=== PATIENT | male | born 1940 | race Caucasian/White ===

== ENCOUNTER 2020-06-08 13:55 | Emergency (ER) | payer OTHER, SELFPAY ==
[2020-06-08] VITALS (7 sets, daily range): BP systolic 106–152; BP diastolic 68–84; PULSE 50–61; RESP 14–20; TEMP 36.6; O2SAT 89–97; BMI 33.6
--- NOTE | 2020-06-08 15:13 | XRR_ITS ---
PROCEDURE INFORMATION: Exam: XR Chest, 1 View Exam date and time: 06/08/2020 3:22 PM Age: 80 years old Clinical indication: Chest pain; Type not specified TECHNIQUE: Imaging protocol: XR of the chest Views: 1 view. COMPARISON: No relevant prior studies available. FINDINGS: Lungs: Mild fibrosis at the lung bases. No consolidative pulmonary infiltrate noted. Pleural space: No pleural effusion. No pneumothorax. Heart/Mediastinum: No cardiomegaly. Bones/joints: Mild degenerative thoracic spine changes. XR/XR chest 1V portable [id number] IMPRESSION: No acute cardiopulmonary disease demonstrated.
--- NOTE | 2020-06-08 15:13 | ECG_ITS ---
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 Measurements Intervals [place] Rate: 55 P: -21 IL: 210 QRS: -29 QRSD: 90 T: 62 QT: 396 QTc: 380 Interpretive Statements SINUS BRADYCARDIA WITH FIRST DEGREE AV BLOCK MODERATE VOLTAGE CRITERIA FOR LVH, CONSIDER NORMAL VARIANT [MEETS CRITERIA IN ONE OF: R(aVL), S(V1), R(V5), R(V5/V6)+S(V1)] No previous ECG available for comparison Electronically Signed On 06-08-2020 20:21:54 LEVELING MACHINE OPERATOR by Tiffanie Brannon M.D. [id number]
--- NOTE | 2020-06-08 15:32 | W.ED.FALL ---
HPI - Fall General: Chief Complaint: Fall Stated Complaint: CP, FALL Time Seen by Provider: 06/08/20 15:11 History of Present Illness: HPI Narrative: The patient is an 80-year-old male with past medical history of coronary artery disease, hypertension. He was standing at the kitchen sink and began to fall backwards and started walking backwards but could not catch up and fell flat on his back. He does not complain of pain but he said earlier today he had a left-sided chest pain similar to the chest pain he had when he had his stents placed in his heart years ago. He said he had another episode a few days ago but has not seen anyone about this problem. He said over the past week he has been having increased cough and he does have COPD as well. He wears 1 L oxygen at night only. Satting 93% on room air in the ER today. No respiratory distress. Fall from: standing Fall witnessed: no Place fall occurred: home Loss of consciousness: None Prolonged down time: no Symptoms prior to fall: none Severity: mild Associated symptoms-after fall: Denies abdominal pain, chest pain, confusion, difficulty walking, headache(s) or neck pain Review of Systems General: Reports: 10 or more systems reviewed and unremarkable except in HPI and below Const: Denies: fatigue Eyes: Denies: change in vision, blurry vision or eye redness ENMT: Denies: throat pain, swelling of lips/tongue, ear or mastoid pain or nasal congestion Card: Denies: chest pain, palpitations, irregular heart rhythm, edema, dyspnea on exertion or orthopnea Resp: Denies: dyspnea, productive cough or non-productive cough GI: Denies: abdominal pain, diarrhea or GI cramping : Denies: flank pain, urinary frequency or urinary urgency Musc: Denies: neck pain, back pain, extremity pain, joint pain, joint redness, limited range of motion or muscle weakness Skin/Breast: Denies: rash, pruritus, erythema, skin pain or skin tenderness Neuro: Denies: headache(s), numbness in extremities, weakness in extremities, sensory changes, difficulty walking, dizziness, confusion or Slurred speech present Psych: Denies: anxiety or depression Endo: Denies: polyuria All/Imm: Denies: urticaria, throat swelling or tongue swelling Physical Exam Const: COMMON NORMALS: no acute distress, average body habitus, patient oriented x3, no limitations, healthy appearing, alert and well nourished GENERAL APPEARANCE: cooperative, comfortable, well kempt and well developed ORIENTATION/CONSCIOUSNESS: Yes awake, Yes oriented to person, Yes oriented to place and Yes oriented to time HENMT: COMMON NORMALS: normocephalic, external ears normal and Normal external nose present HEAD & SCALP: normal to inspection and normocephalic NOSE: Normal external nose present EXTERNAL EAR: Yes external ears normal MOUTH: Normal oral and palatal mucosa present THROAT: posterior oropharynx normal Eye: COMMON NORMALS: Equal, round and reactive pupils present and EOMs intact bilaterally GENERAL EYE: appearance normal, both eyes and all related structures PUPIL: Yes Equal, round and reactive pupils present Neck/C-Spine: COMMON NORMALS: full ROM, no lymphadenopathy, no meningeal signs and no JVD GENERAL: Yes normal visual inspection Lymph: LYMPHATIC: no lymphadenopathy noted Chest: COMMONS NORMALS: normal inspection of the chest and normal palpation of entire chest wall Resp: COMMON NORMALS: normal respiratory effort, No retractions, No use of accessory muscles, clear to auscultation bilaterally and percussion normal EFFORT & INSPECTION: Yes able to speak in complete sentences AUSCULTATION: clear to auscultation bilaterally PERCUSSION: percussion normal Cardio: COMMON NORMALS: no JVD, regular rate, regular rhythm, S1 normal heart sound present, S2 normal heart sound present and Peripheral pulses 2+ throughout RATE: regular rate RHYTHM: regular rhythm HEART SOUNDS: S1 normal heart sound present and S2 normal heart sound present PERIPHERAL PULSES: Peripheral pulses 2+ throughout GI: COMMON NORMALS: Normal to inspection, nondistended, normoactive bowel sounds present, Soft to palpation, non-tender and no masses INSPECTION: Yes normal to inspection PALPATION: Yes Soft to palpation : COMMON NORMALS: Yes no CVA tenderness BLADDER/KIDNEY EXAM: Yes no CVA tenderness Back/Pelvis: COMMON NORMALS: no CVA tenderness, thoracic and lumbar spine normal to inspection, no thoracic nor lumbar tenderness and thoraco-lumbar ROM normal Extremity: COMMON NORMALS: normal to inspection, full ROM, capillary refill normal, no joint enlargement and no pedal edema GENERAL: Yes normal exam except as noted Neuro: COMMON NORMALS: patient oriented x3, CN's II-XII intact bilaterally, moves all extremities, no focal motor deficits, no sensory deficits noted and gait normal SENSORIUM/ORIENTATION: Yes alert, Yes oriented to person, Yes oriented to place and Yes oriented to time MENINGEAL SIGNS: Yes no meningeal signs Psych: COMMON NORMALS: mental status grossly normal, Normal thought process present, cooperative, normal affect and speech normal APPEARANCE: Yes well kempt ATTITUDE: Yes calm SPEECH: Yes normal speech THOUGHT PROCESS: Normal thought process present Skin: COMMON NORMALS: no rashes or lesions noted GENERAL SKIN EXAM: no rashes or lesions noted Course Vital Signs: Vital signs: Vital Signs Temperature 97.8 F 06/08/20 14:17 Pulse Rate 55 L 06/08/20 15:11 Respiratory Rate 20 H 06/08/20 15:11 Blood Pressure 106/68 06/08/20 15:11 Pulse Oximetry 93 06/08/20 15:11 MDM - Fall MDM Narrative: Medical decision making narrative: The patient has COPD and left-sided chest pain he says similar to when he had his cardiac stenting procedures done years ago. I recommended admission however he declined. I discussed it would be AGAINST MEDICAL ADVICE. He understands and accepts the risks of myocardial infarction and . He signed AMA and left. Recommended calling his call center team leader in [place] to get an appointment CASEY and return to the ER with any worsening symptoms Lab Data: Labs: Lab Results 06/08/20 06/08/20 06/08/20 Range/Units 15:22 15:22 15:22 WBC 12.3 H (4.0-10.0) 10^3/ uL RBC 4.27 (4.1-5.3) 10^6/u L Hgb 13.2 (11.7-16.6) g/dL Hct 41.1 L (42.0-52.0) % MCV 96.3 H (80-94) fL MCH 30.9 (28.0-34.0) pg MCHC 32.1 (30.0-36.0) g/dL RDW 12.8 (12.1-15.1) % Plt Count 354 (130-400) 10^3/c mm MPV 10.0 (7.4-10.4) fL Neut % (Auto) 80.9 % Lymph % (Auto) 10.5 % Stephens % (Auto) 7.5 % Eos % (Auto) 0.2 % Baso % (Auto) 0.2 % Neut # (Auto) 9.98 H (1.8-7.7) 10^3/u L Lymph # (Auto) 1.3 (0.8-4.8) 10^3/u L Stephens # (Auto) 0.9 (0.2-0.9) 10^3/u L Eos # (Auto) 0.0 (0.0-0.8) 10^3/u L Baso # (Auto) 0.0 (0.0-0.1) 10^3/u L Nucleated RBC % (a uto) 0 % Nucleated RBCs # 0.0 /100WBC PT 13.80 (12.1-14.9) SECO NDS INR 1.03 (0.8-1.2) D-Dimer 2.68 H (0-0.59) ug/mIFE U Sodium 134 L (136-145) mmol/L Potassium 4.5 (3.5-5.1) mmol/L Chloride 97 L (98-107) mmol/L Carbon Dioxide 28 (22-29) mmol/L Anion Gap 13.5 (5-19) BUN 29 H (8-23) mg/dL Creatinine 1.3 H (0.7-1.2) mg/dL GFR Calculation Not Reportable Glucose 165 H (65-115) mg/dL Calculated Osmolal ity 288 (285-295) mOsm/k g Calcium 9.9 (8.5-10.5) mg/dL Total Bilirubin 0.4 (0.15-1.2) mg/dL AST 33 (0-40) U/L ALT 40 (0-41) U/L Alkaline Phosphata se 94 (40-130) IU/L Troponin T Baselin e (0-15) ng/L NT-Pro-B Natriuret Pep 443 (0-450) pg/mL Total Protein 7.3 (6.6-8.7) g/dL Albumin 4.1 (3.5-5.2) g/dL Globulin 3.2 (1.3-4.6) g/dL 06/08/20 Range/Units 15:22 WBC (4.0-10.0) 10^3/ uL RBC (4.1-5.3) 10^6/u L Hgb (11.7-16.6) g/dL Hct (42.0-52.0) % MCV (80-94) fL MCH (28.0-34.0) pg MCHC (30.0-36.0) g/dL RDW (12.1-15.1) % Plt Count (130-400) 10^3/c mm MPV (7.4-10.4) fL Neut % (Auto) % Lymph % (Auto) % Stephens % (Auto) % Eos % (Auto) % Baso % (Auto) % Neut # (Auto) (1.8-7.7) 10^3/u L Lymph # (Auto) (0.8-4.8) 10^3/u L Stephens # (Auto) (0.2-0.9) 10^3/u L Eos # (Auto) (0.0-0.8) 10^3/u L Baso # (Auto) (0.0-0.1) 10^3/u L Nucleated RBC % (a uto) % Nucleated RBCs # /100WBC PT (12.1-14.9) SECO NDS INR (0.8-1.2) D-Dimer (0-0.59) ug/mIFE U Sodium (136-145) mmol/L Potassium (3.5-5.1) mmol/L Chloride (98-107) mmol/L Carbon Dioxide (22-29) mmol/L Anion Gap (5-19) BUN (8-23) mg/dL Creatinine (0.7-1.2) mg/dL GFR Calculation Glucose (65-115) mg/dL Calculated Osmolal ity (285-295) mOsm/k g Calcium (8.5-10.5) mg/dL Total Bilirubin (0.15-1.2) mg/dL AST (0-40) U/L ALT (0-41) U/L Alkaline Phosphata se (40-130) IU/L Troponin T Baselin e 25 H (0-15) ng/L NT-Pro-B Natriuret Pep (0-450) pg/mL Total Protein (6.6-8.7) g/dL Albumin (3.5-5.2) g/dL Globulin (1.3-4.6) g/dL Discharge Plan Discharge Patient Disposition: Left Against Medical Advice Condition: Stable Prescriptions: No Action atorvastatin 40 mg tablet 40 mg PO DAILY@1900 RF: 0 azithromycin 250 mg tablet 250 mg PO DAILY@0900 RF: 0 levalbuterol HCl 0.63 mg/3 mL solution for nebulization See Rx Instructions .ROUTE .COMPLEX RF: 0 lisinopril 20 mg tablet 20 mg PO DAILY@0900 RF: 0 prednisone 20 mg tablet 20 mg PO DAILY@0900 RF: 0 clopidogrel 75 mg tablet 75 mg PO DAILY@0900 RF: 0 glipizide 5 mg tablet 5 mg PO DAILY@0900 RF: 0 metoprolol tartrate 25 mg tablet 25 mg PO BID@0900,1900 RF: 0 Tylenol 325 mg Tablet 325 - 350 mg PO QID PRN (Reason: Pain) RF: 0 Aspir-81 81 mg Tablet,Delayed Release (Dr/Ec) 81 mg PO DAILY@0900 RF: 0 Coding Level of Care Code ED Milled Lumber Grader for Cheri Fwd Exam Comprehensive
[2020-06-08 15:41] LABS: Basophils % 0.2 %; Eosinophils % 0.2 %; Hematocrit 41.1 % (42.0-52.0); Hemoglobin 13.2 g/dL (11.7-16.6); Lymphocytes # 1.3 10^3/uL (0.8-4.8); Lymphocytes % 10.5 %; Mean Corpuscular HGB Conc 32.1 g/dL (30.0-36.0); Mean Corpuscular Hemoglobin 30.9 pg (28.0-34.0); Mean Corpuscular Volume 96.3 fL (80-94); Monocytes # 0.9 10^3/uL (0.2-0.9); Monocytes % 7.5 %; Neutrophils # 9.98 10^3/uL (1.8-7.7); Neutrophils % 80.9 %; Nucleated Red Blood Cells % 0 %; Platelet Count 354 10^3/cmm (130-400); Red Blood Count 4.27 10^6/uL (4.1-5.3); Red Cell Distribution Width 12.8 % (12.1-15.1); White Blood Count 12.3 10^3/uL (4.0-10.0)
[2020-06-08] MEDS: aspirin 81 mg Chew Tablet PO (15:41)
[2020-06-08 16:06] LABS: INR 1.03 (0.8-1.2)
[2020-06-08 16:09] LABS: D Dimer 2.68 ug/mIFEU (0-0.59)
--- NOTE | 2020-06-08 16:18 | CTR_ITS ---
PROCEDURE INFORMATION: Exam: CT Angiography Chest With Contrast Exam date and time: 06/08/2020 5:10 PM Age: 80 years old Clinical indication: Shortness of breath; Additional info: RO pe TECHNIQUE: Imaging protocol: Computed tomographic angiography of the chest with intravenous contrast. 3D rendering (Not supervised by radiologist): MIP and/or 3D reconstructed images were created by the technologist. Radiation optimization: All CT scans at this facility use at least one of these dose optimization techniques: automated exposure control; mA and/or kV adjustment per patient size (includes targeted exams where dose is matched to clinical indication); or iterative reconstruction. Contrast material: VISI 320; Contrast volume: 81 ml; Contrast route: INTRAVENOUS (IV); COMPARISON: CR (CHEST, ) 06/08/2020 3:19 PM RADIATION DOSE METRICS: Total DLP (mGy-cm): 621.07 FINDINGS: Pulmonary arteries: Pulmonary arteries are well opacified. Pulmonary arteries are normal in caliber. No filling defects are demonstrated. No evidence of pulmonary embolism. Aorta: Atherosclerosis of the thoracic aorta. 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 No aortic dissection. Lungs: Mild subpleural fibrosis bilaterally. Mild atelectasis at the lung bases. No consolidative pulmonary infiltrate noted. Pleural space: No pleural effusion or pneumothorax noted. Heart: No cardiomegaly. No pericardial effusion. Lymph nodes: No pathologically enlarged lymph nodes are demonstrated. Bones/joints: Mild degenerative thoracic spine changes. No acute osseous abnormality. Soft tissues: The soft tissues appear unremarkable. CT/CT angio chest PE protcl [id number] IMPRESSION: 1. No evidence of pulmonary embolism. 2. Atherosclerosis of the thoracic aorta. 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 No aortic dissection. 3. Mild subpleural fibrosis bilaterally. Mild atelectasis at the lung bases. No consolidative pulmonary infiltrate noted. Radiation Dose CTDIVOL = (mGy): DLP = 621.07 (mGy-cm)
[2020-06-08 16:19] LABS: Troponin(5th) Baseline 25 ng/L (0-15)
[2020-06-08 16:39] LABS: Alanine Aminotransferase 40 U/L (0-41); Albumin Level 4.1 g/dL (3.5-5.2); Alkaline Phosphatase 94 IU/L (40-130); Anion Gap 13.5 (5-19); Aspartate Amino Transferase 33 U/L (0-40); Blood Urea Nitrogen 29 mg/dL (8-23); Calcium 9.9 mg/dL (8.5-10.5); Carbon Dioxide 28 mmol/L (22-29); Chloride 97 mmol/L (98-107); Globulin 3.2 g/dL (1.3-4.6); Glucose 165 mg/dL (65-115); NT Pro B Type Natriuretic Pept 443 pg/mL (0-450); Osmolality Calculated 288 mOsm/kg (285-295); Potassium 4.5 mmol/L (3.5-5.1); Sodium 134 mmol/L (136-145); Total Bilirubin 0.4 mg/dL (0.15-1.2); Total Protein 7.3 g/dL (6.6-8.7)
--- NOTE | 2020-06-08 17:13 | ECG_ITS ---
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 Measurements Intervals [place] Rate: 59 P: -2 OR: 178 QRS: -27 QRSD: 94 T: 48 QT: 409 QTc: 408 Interpretive Statements SINUS BRADYCARDIA BORDERLINE LEFT AXIS DEVIATION [QRS AXIS < -20] Compared to ECG 06/08/2020 14:15:33 First degree AV block no longer present Electronically Signed On 06-08-2020 20:36:40 DAYTIME BABYSITTER by Tiffanie Brannon M.D. [id number]
[2020-06-08] MEDS: iodixanol 320 mg/mL 100mL Btl IV (17:15)
== END 2020-06-08 18:40 | disposition left against medical advice (07) ==
PROVIDERS: Emergency Provider Family Medicine
DX: R07.9 Chest pain, unspecified (principal); Z53.21 Procedure and treatment not carried out due to patient leaving prior to being seen by health care provider; Z79.84 Long term (current) use of oral hypoglycemic drugs; Z79.02 Long term (current) use of antithrombotics/antiplatelets; Z79.82 Long term (current) use of aspirin
CPT/HCPCS: 12345; 71045; 71275; 80053; 83880; 84484; 85025; 85378; 85610; 93005; 99282; 99284; Q9967

== ENCOUNTER 2020-06-09 13:30 | Inpatient (IN) | payer MEDICARE, SELFPAY ==
[2020-06-09 13:36] VITALS: BP 105/55; PULSE 56; RESP 16; TEMP 36.4; O2SAT 96; BMI 33.6
--- NOTE | 2020-06-09 13:48 | XRR_ITS ---
PROCEDURE INFORMATION: Exam: XR Chest, 1 View Exam date and time: 06/09/2020 1:52 PM Age: 80 years old Clinical indication: Chest pain; Type not specified TECHNIQUE: Imaging protocol: XR of the chest Views: 1 view. COMPARISON: CR (CHEST, ) 06/08/2020 3:19 PM FINDINGS: Lungs: There is right lower lobe atelectasis seen. No consolidation. Pleural space: Unremarkable. No pleural effusion. No pneumothorax. Heart/Mediastinum: Unremarkable. No cardiomegaly. Bones/joints: Unremarkable. XR/XR chest 1V portable [id number] IMPRESSION: 1. Right lower lobe atelectasis 2. No acute findings.
--- NOTE | 2020-06-09 13:48 | CT_ITS ---
WS: [id number] CT HEAD NONCONTRAST HISTORY: altered mental status TECHNIQUE: Contiguous axial imaging performed through the brain in 2.5 mm imaging. Bone and soft tiss ue windows. Sagittal and coronal reformats reviewed. All CT scans at [facility] use at ast one of these dose optimization techniques: automated exposure control; mA and/or kV adjustment pe r patient size (includes targeted exams where dose is matched to clinical indication); or iterative r econstruction. DLP: 969.08 mGy.cm COMPARISON: None available. No acute intracranial hemorrhage, midline shift or mass effect. Mild atrophy and mild chronic microvascular ischemic disease. There are a few small lacunar infarcts in the LEFT basal ganglia. No acute infarct or sulcal effacement. Mild volume loss in the cerebellum. Ventricles: Normal size with no hydrocephalus. Paranasal sinuses: As visualized are clear. Mastoid air cells: Well pneumatized. Calvarium and scalp: Skull is intact with no soft tissue edema or swelling. Moderate to severe atherosclerotic plaque within the intracranial carotid arteries. CT/CT head wo con* [id number] IMPRESSION: 1. No acute intracranial hemorrhage or edema. 2. Mild cerebral atrophy and chronic ischemic disease with small LEFT basal ga nglia lacunar infarcts.
--- NOTE | 2020-06-09 13:51 | ECG_ITS ---
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 Measurements Intervals [place] Rate: 54 P: 71 [place]: 202 QRS: -23 QRSD: 72 T: 67 QT: 393 QTc: 375 Interpretive Statements SINUS BRADYCARDIA INFERIOR MYOCARDIAL INFARCTION , PROBABLY OLD [40+ ms Q WAVE AND/OR ST/T ABNORMALITY IN II/aVF] Compared to ECG 06/08/2020 17:47:02 Myocardial infarct finding now present Prominent U wave Electronically Signed On 06-09-2020 18:47:16 TILE AND MARBLE SETTER by Tiffanie Brannon M.D. [id number]
[2020-06-09] MEDS: aspirin 81 mg Chew Tablet PO ×3 (14:17→14:18)
--- NOTE | 2020-06-09 14:26 | ED_ITS ---
HPI - General Adult General: Chief complaint: General Medical Stated complaint: weakness/dizziness Time Seen by Provider: 06/09/20 13:38 History of Present Illness: HPI narrative: The patient is an 80-year-old male with past medical history of coronary artery disease, hypertension, and COPD. He wears 1 L of oxygen at night only. He comes to the ER today for a fall. He says he has been getting off balance and falls backward. Denies any injuries. He was seen here yesterday and left AGAINST MEDICAL ADVICE for a nearly identical fall. He has been having increased falls over the past 1 to 2 weeks and says he has been having left-sided chest pain intermittently. He also gets short of breath. EMS reports that he had left-sided chest pain and left arm tingling during the ride though he now denies this. Severity: moderate Associated symptoms: Deny chest pain, confusion, dyspnea, headache(s), rash or palpitations Review of Systems General: Reports: 10 or more systems reviewed and unremarkable except in HPI and below Const: Denies: fatigue Eyes: Denies: change in vision, blurry vision or eye redness ENMT: Denies: throat pain, swelling of lips/tongue, ear or mastoid pain or nasal congestion Card: Denies: chest pain, palpitations, irregular heart rhythm, edema, dyspnea on exertion or orthopnea Resp: Denies: dyspnea, productive cough or non-productive cough GI: Denies: abdominal pain, diarrhea or GI cramping : Denies: flank pain, urinary frequency or urinary urgency Musc: Denies: neck pain, back pain, extremity pain, joint pain, joint redness, limited range of motion or muscle weakness Skin/Breast: Denies: rash, pruritus, erythema, skin pain or skin tenderness Neuro: Denies: headache(s), numbness in extremities, weakness in extremities, sensory changes, difficulty walking, dizziness, confusion or Slurred speech present Psych: Denies: anxiety or depression Endo: Denies: polyuria All/Imm: Denies: urticaria, throat swelling or tongue swelling PFSH ED PFSH: Medical History COPD (chronic obstructive pulmonary disease) History of prediabetes Hypertension Surgical History H/O abdominal aortic aneurysm repair Family History Other Family history non-contributory Social History Smoking and tobacco status: former smoker Alcohol intake: never Substance/Drug Use: never Household members: family Housing: House Physical Exam Const: COMMON NORMALS: no acute distress, average body habitus, patient tobi ented x3, no limitations, healthy appearing, alert and well nourished GENERAL APPEARANCE: cooperative, comfortable, well kempt and well developed ORIENTATION/CONSCIOUSNESS: Yes awake, Yes oriented to person, Yes oriented to place and Yes oriented to time HENMT: COMMON NORMALS: normocephalic, external ears normal and Normal external nose present HEAD & SCALP: normal to inspection and normocephalic NOSE: Normal external nose present EXTERNAL EAR: Yes external ears normal MOUTH: Normal oral and palatal mucosa present THROAT: posterior oropharynx normal Eye: COMMON NORMALS: Equal, round and reactive pupils present and EOMs intact bilaterally GENERAL EYE: appearance normal, both eyes and all related structures PUPIL: Yes Equal, round and reactive pupils present Neck/C-Spine: COMMON NORMALS: full ROM, no lymphadenopathy, no meningeal signs and no JVD GENERAL: Yes normal visual inspection Lymph: LYMPHATIC: no lymphadenopathy noted Chest: COMMONS NORMALS: normal inspection of the chest and normal palpation of entire chest wall Resp: COMMON NORMALS: normal respiratory effort, No retractions, No use of accessory muscles, clear to auscultation bilaterally and percussion normal EFFORT & INSPECTION: Yes able to speak in complete sentences AUSCULTATION: clear to auscultation bilaterally PERCUSSION: percussion normal Cardio: COMMON NORMALS: no JVD, regular rate, regular rhythm, S1 normal heart sound present, S2 normal heart sound present and Peripheral pulses 2+ throughout RATE: regular rate RHYTHM: regular rhythm HEART SOUNDS: S1 normal heart sound present and S2 normal heart sound present PERIPHERAL PULSES: Peripheral pulses 2+ throughout GI: COMMON NORMALS: Normal to inspection, nondistended, normoactive bowel sounds present, Soft to palpation, non-tender and no masses INSPECTION: Yes normal to inspection PALPATION: Yes Soft to palpation : COMMON NORMALS: Yes no CVA tenderness BLADDER/KIDNEY EXAM: Yes no CVA tenderness Back/Pelvis: COMMON NORMALS: no CVA tenderness, thoracic and lumbar spine normal to inspection, no thoracic nor lumbar tenderness and thoraco-lumbar ROM normal Extremity: COMMON NORMALS: normal to inspection, full ROM, capillary refill normal, no joint enlargement and no pedal edema GENERAL: Yes normal exam except as noted Neuro: COMMON NORMALS: patient oriented x3, CN's II-XII intact bilaterally, moves all extremities, no focal motor deficits, no sensory deficits noted and gait normal SENSORIUM/ORIENTATION: Yes alert, Yes oriented to person, Yes oriented to place and Yes oriented to time MENINGEAL SIGNS: Yes no meningeal signs Psych: COMMON NORMALS: mental status grossly normal, Normal thought process present, cooperative, normal affect and speech normal APPEARANCE: Yes well kempt ATTITUDE: Yes calm SPEECH: Yes normal speech THOUGHT PROCESS: Normal thought process present Skin: COMMON NORMALS: no rashes or lesions noted GENERAL SKIN EXAM: no rashes or lesions noted Course Vital Signs: Vital signs: Vital Signs Temperature 97.5 F L 06/09/20 13:36 Pulse Rate 61 06/09/20 21:32 Respiratory Rate 14 06/09/20 21:32 Blood Pressure 108/61 06/09/20 21:32 Pulse Oximetry 95 06/09/20 21:32 MDM - General Adult MDM Narrative: Medical decision making narrative: The patient comes in today after leaving AMA yesterday. He is likely having early dementia but he continues to report chest pain both days. Troponins have been negative but EKG shows he does have some cardiac history and possible T wave changes on the repeat EKG. X-ray also shows a likely consolidation in right lower lung and he was started on antibiotics. Discussed patient's care with Dr. Burgess who accepts his care. Lab Data: Labs: Lab Results 06/09/20 06/09/20 06/09/20 Range/Units 17:19 17:19 17:19 WBC 11.9 H (4.0-10.0) 10^3/ uL RBC 4.17 (4.1-5.3) 10^6/u L Hgb 12.9 (11.7-16.6) g/dL Hct 40.3 L (42.0-52.0) % MCV 96.6 H (80-94) fL MCH 30.9 (28.0-34.0) pg MCHC 32.0 (30.0-36.0) g/dL RDW 13.0 (12.1-15.1) % Plt Count 325 (130-400) 10^3/c mm MPV 9.9 (7.4-10.4) fL Neut % (Auto) 67.2 % Lymph % (Auto) 20.4 % Dunn % (Auto) 10.3 % Eos % (Auto) 0.6 % Baso % (Auto) 0.3 % Neut # (Auto) 8.03 H (1.8-7.7) 10^3/u L Lymph # (Auto) 2.4 (0.8-4.8) 10^3/u L Dunn # (Auto) 1.2 H (0.2-0.9) 10^3/u L Eos # (Auto) 0.1 (0.0-0.8) 10^3/u L Baso # (Auto) 0.0 (0.0-0.1) 10^3/u L Nucleated RBC % (a uto) 0 % Nucleated RBCs # 0.0 /100WBC D-Dimer 2.29 H (0-0.59) ug/mIFE U Sodium 138 (136-145) mmol/L Potassium 4.3 (3.5-5.1) mmol/L Chloride 100 (98-107) mmol/L Carbon Dioxide 27 (22-29) mmol/L Anion Gap 15.3 (5-19) BUN 33 H (8-23) mg/dL Creatinine 1.4 H (0.7-1.2) mg/dL GFR Calculation Not Reportable Glucose 116 H (65-115) mg/dL Calculated Osmolal ity 294 (285-295) mOsm/k g Lactate (0.5-2.2) mmol/L Calcium 9.7 (8.5-10.5) mg/dL Total Bilirubin 0.4 (0.15-1.2) mg/dL AST 32 (0-40) U/L ALT 42 H (0-41) U/L Alkaline Phosphata se 92 (40-130) IU/L Creatine Kinase 27 L (39-308) U/L Troponin T Baselin e (0-15) ng/L Troponin T 120 Min [place] (0-15) ng/L Delta Troponin T (0-10) ABS# NT-Pro-B Natriuret Pep 259 (0-450) pg/mL Total Protein 6.7 (6.6-8.7) g/dL Albumin 3.8 (3.5-5.2) g/dL Globulin 2.9 (1.3-4.6) g/dL Urine Color (Yellow) Urine Appearance (CLEAR) Urine pH (5-7) Ur Specific Gravit y (1.005-1.030) Urine Protein (Negative) Urine Glucose (UA) (Normal) Urine Ketones (Negative) Urine Blood (Negative) Urine Nitrate (Negative) Urine Bilirubin (Negative) Urine Urobilinogen (Negative) mg/dL Ur Leukocyte Fidelina ase (Negative) Urine RBC (0-2) /hpf Urine WBC (0-5) /hpf Ur Squamous Epith Cells (0-5) /hpf Amorphous Sediment /hpf Urine Bacteria (NONE) /hpf Hyaline Casts /lpf Coarse Granular Ca sts /lpf Urine Mucus /hpf 06/09/20 06/09/20 06/09/20 Range/Units 17:19 17:19 17:57 WBC (4.0-10.0) 10^3/ uL RBC (4.1-5.3) 10^6/u L Hgb (11.7-16.6) g/dL Hct (42.0-52.0) % MCV (80-94) fL MCH (28.0-34.0) pg MCHC (30.0-36.0) g/dL RDW (12.1-15.1) % Plt Count (130-400) 10^3/c mm MPV (7.4-10.4) fL Neut % (Auto) % Lymph % (Auto) % Dunn % (Auto) % Eos % (Auto) % Baso % (Auto) % Neut # (Auto) (1.8-7.7) 10^3/u L Lymph # (Auto) (0.8-4.8) 10^3/u L Dunn # (Auto) (0.2-0.9) 10^3/u L Eos # (Auto) (0.0-0.8) 10^3/u L Baso # (Auto) (0.0-0.1) 10^3/u L Nucleated RBC % (a uto) % Nucleated RBCs # /100WBC D-Dimer (0-0.59) ug/mIFE U Sodium (136-145) mmol/L Potassium (3.5-5.1) mmol/L Chloride (98-107) mmol/L Carbon Dioxide (22-29) mmol/L Anion Gap (5-19) BUN (8-23) mg/dL Creatinine (0.7-1.2) mg/dL GFR Calculation Glucose (65-115) mg/dL Calculated Osmolal ity (285-295) mOsm/k g Lactate 1.6 (0.5-2.2) mmol/L Calcium (8.5-10.5) mg/dL Total Bilirubin (0.15-1.2) mg/dL AST (0-40) U/L ALT (0-41) U/L Alkaline Phosphata se (40-130) IU/L Creatine Kinase (39-308) U/L Troponin T Baselin e 25 H (0-15) ng/L Troponin T 120 Min [place] (0-15) ng/L Delta Troponin T (0-10) ABS# NT-Pro-B Natriuret Pep (0-450) pg/mL Total Protein (6.6-8.7) g/dL Albumin (3.5-5.2) g/dL Globulin (1.3-4.6) g/dL Urine Color Dark yellow (Yellow) Urine Appearance Clear (CLEAR) Urine pH 5 (5-7) Ur Specific Gravit y 1.025 (1.005-1.030) Urine Protein Trace (Negative) Urine Glucose (UA) Norm (Normal) Urine Ketones Negative (Negative) Urine Blood Neg (Negative) Urine Nitrate Negative (Negative) Urine Bilirubin 1+ H (Negative) Urine Urobilinogen 1 H (Negative) mg/dL Ur Leukocyte Fidelina ase Negative (Negative) Urine RBC None (0-2) /hpf Urine WBC 0-4 H (0-5) /hpf Ur Squamous Epith Cells None (0-5) /hpf Amorphous Sediment 1+ /hpf Urine Bacteria 1+ H (NONE) /hpf Hyaline Casts 15-25 H /lpf Coarse Granular Ca sts 15-25 H /lpf Urine Mucus Trace /hpf 01/18/21 Range/Units 19:10 WBC (4.0-10.0) 10^3/ uL RBC (4.1-5.3) 10^6/u L Hgb (11.7-16.6) g/dL Hct (42.0-52.0) % MCV (80-94) fL MCH (28.0-34.0) pg MCHC (30.0-36.0) g/dL RDW (12.1-15.1) % Plt Count (130-400) 10^3/c mm MPV (7.4-10.4) fL Neut % (Auto) % Lymph % (Auto) % Dunn % (Auto) % Eos % (Auto) % Baso % (Auto) % Neut # (Auto) (1.8-7.7) 10^3/u L Lymph # (Auto) (0.8-4.8) 10^3/u L Dunn # (Auto) (0.2-0.9) 10^3/u L Eos # (Auto) (0.0-0.8) 10^3/u L Baso # (Auto) (0.0-0.1) 10^3/u L Nucleated RBC % (a uto) % Nucleated RBCs # /100WBC D-Dimer (0-0.59) ug/mIFE U Sodium (136-145) mmol/L Potassium (3.5-5.1) mmol/L Chloride (98-107) mmol/L Carbon Dioxide (22-29) mmol/L Anion Gap (5-19) BUN (8-23) mg/dL Creatinine (0.7-1.2) mg/dL GFR Calculation Glucose (65-115) mg/dL Calculated Osmolal ity (285-295) mOsm/k g Lactate (0.5-2.2) mmol/L Calcium (8.5-10.5) mg/dL Total Bilirubin (0.15-1.2) mg/dL AST (0-40) U/L ALT (0-41) U/L Alkaline Phosphata se (40-130) IU/L Creatine Kinase (39-308) U/L Troponin T Baselin e (0-15) ng/L Troponin T 120 Min [place] 22.14 H (0-15) ng/L Delta Troponin T -2.86 L (0-10) ABS# NT-Pro-B Natriuret Pep (0-450) pg/mL Total Protein (6.6-8.7) g/dL Albumin (3.5-5.2) g/dL Globulin (1.3-4.6) g/dL Urine Color (Yellow) Urine Appearance (CLEAR) Urine pH (5-7) Ur Specific Gravit y (1.005-1.030) Urine Protein (Negative) Urine Glucose (UA) (Normal) Urine Ketones (Negative) Urine Blood (Negative) Urine Nitrate (Negative) Urine Bilirubin (Negative) Urine Urobilinogen (Negative) mg/dL Ur Leukocyte Fidelina ase (Negative) Urine RBC (0-2) /hpf Urine WBC (0-5) /hpf Ur Squamous Epith Cells (0-5) /hpf Amorphous Sediment /hpf Urine Bacteria (NONE) /hpf Hyaline Casts /lpf Coarse Granular Ca sts /lpf Urine Mucus /hpf Discharge Plan Discharge Patient Disposition: Admitted As Inpatient Clinical Impression: Chest pain, Fall, Bradycardia, KARY (acute kidney injury), Pneumonia, Acute confusion Condition: Stable Coding Level of Care Code ED Web Production Designer for Jeannineg Fwd Exam Comprehensive
--- NOTE | 2020-06-09 15:51 | ECG_ITS ---
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 Measurements Intervals [place] Rate: 53 P: 19 MS: 183 QRS: -18 QRSD: 88 T: 63 QT: 391 QTc: 368 Interpretive Statements SINUS BRADYCARDIA NONSPECIFIC T-WAVE ABNORMALITY Compared to ECG 06/09/2020 14:31:08 T-wave abnormality now present Myocardial infarct finding no longer present Electronically Signed On 06-09-2020 18:55:25 SERVICE CLEANER by Tiffanie Brannon M.D. [id number]
[2020-06-09 17:25] LABS: Basophils % 0.3 %; Eosinophils # 0.1 10^3/uL (0.0-0.8); Eosinophils % 0.6 %; Hematocrit 40.3 % (42.0-52.0); Hemoglobin 12.9 g/dL (11.7-16.6); Lymphocytes # 2.4 10^3/uL (0.8-4.8); Lymphocytes % 20.4 %; Mean Corpuscular Hemoglobin 30.9 pg (28.0-34.0); Mean Corpuscular Volume 96.6 fL (80-94); Mean Platelet Volume 9.9 fL (7.4-10.4); Monocytes # 1.2 10^3/uL (0.2-0.9); Monocytes % 10.3 %; Neutrophils # 8.03 10^3/uL (1.8-7.7); Neutrophils % 67.2 %; Nucleated Red Blood Cells % 0 %; Platelet Count 325 10^3/cmm (130-400); Red Blood Count 4.17 10^6/uL (4.1-5.3); White Blood Count 11.9 10^3/uL (4.0-10.0)
[2020-06-09 18:10] LABS: D Dimer 2.29 ug/mIFEU (0-0.59)
[2020-06-09 18:20] LABS: Add Urine Microscopic? YES; Bilirubin Urine 1+ (Negative); Blood Urine Neg (Negative); Glucose Urine UA Norm (Normal); Ketones Urine Negative (Negative); Leukocyte Esterase Urine Negative (Negative); Nitrate Urine Negative (Negative); Protein Urine Trace (Negative); Specific Gravity, Urine 1.025 (1.005-1.030); Urine Appearance Clear (CLEAR); Urine Color Dark Yellow (Yellow); Urobilinogen Urine 1 mg/dL (Negative); WBC Urine 0-4 /hpf (0-5); pH Urine 5 (5-7)
[2020-06-09 18:21] LABS: Add Urine Culture? No; Amorphous Sediment Urine 1+ /hpf; Bacteria Urine 1+ /hpf; Coarse Granular Casts Urine 15-25 /lpf; Hyaline Casts Urine 15-25 /lpf; Mucus Urine TRACE /hpf
[2020-06-09 18:21] LABS: Lactate (Lactic Acid level) 1.6 mmol/L (0.5-2.2)
[2020-06-09 18:25] LABS: Troponin(5th) Baseline 25 ng/L (0-15)
[2020-06-09 18:35] LABS: Alanine Aminotransferase 42 U/L (0-41); Albumin Level 3.8 g/dL (3.5-5.2); Alkaline Phosphatase 92 IU/L (40-130); Anion Gap 15.3 (5-19); Aspartate Amino Transferase 32 U/L (0-40); Blood Urea Nitrogen 33 mg/dL (8-23); Calcium 9.7 mg/dL (8.5-10.5); Carbon Dioxide 27 mmol/L (22-29); Chloride 100 mmol/L (98-107); Creatine Phosphokinase 27 U/L (39-308); Creatinine Clr Calc Pharmacy 56.0752; Globulin 2.9 g/dL (1.3-4.6); Glucose 116 mg/dL (65-115); NT Pro B Type Natriuretic Pept 259 pg/mL (0-450); Osmolality Calculated 294 mOsm/kg (285-295); Potassium 4.3 mmol/L (3.5-5.1); Sodium 138 mmol/L (136-145); Total Bilirubin 0.4 mg/dL (0.15-1.2); Total Protein 6.7 g/dL (6.6-8.7)
[2020-06-09 19:46] VITALS: BP 145/88; PULSE 57; RESP 16; O2SAT 95
[2020-06-09 19:50] VITALS: BP 145/88; PULSE 60; RESP 16; O2SAT 97
--- NOTE | 2020-06-09 19:51 | ECG_ITS ---
[facility] Test Date: 2020-06-10 Pat Name: Randy Renteria Department: Room: EDIP Gender: Male Barrel Raiser: : 1940 Requested By: Stuart Hwang Order Number: [id number] Gianna MD: Rajwinder Milligan M.D. Measurements Intervals [place] Rate: 57 P: 15 OR: 215 QRS: -24 QRSD: 85 T: 13 QT: 396 QTc: 387 Interpretive Statements SINUS BRADYCARDIA WITH FIRST DEGREE AV BLOCK LOW QRS VOLTAGE IN PRECORDIAL LEADS [QRS DEFLECTION < 1.0 mV IN CHEST LEADS] SEPTAL MYOCARDIAL INFARCTION , OF INDETERMINATE AGE [40+ ms Q WAVE IN V1/V2] INFERIOR MYOCARDIAL INFARCTION , PROBABLY OLD [40+ ms Q WAVE AND/OR ST/T ABNORMALITY IN II/aVF] Compared to ECG 06/09/2020 16:32:28 First degree AV block now present Low QRS voltage now present Myocardial infarct finding now present T-wave abnormality no longer present Electronically Signed On 06-10-2020 20:25:22 COMMERCIAL SUBCONTRACTOR by Rajwinder Milligan M.D. [id number]
--- NOTE | 2020-06-09 19:54 | PM.HP ---
Providers/Chief Complaint Chief Complaint: weakness/dizziness History of Present Illness Randy Renteria is a 80 year old male who has history of abdominal aortic stent placement, COPD(uses 1 L nasal cannula at night), presented today with chief complaint of falls and confusion. Patient is stating that recently he has had 3 episodes when he fell on the floor without losing consciousness, he is not sure what exactly triggers it but he is describing is at as confusion spell, which normally starts when he sways backwards spontaneously and fall on the ground, he has not experienced any fever, seizure-like activities, syncopal event, angina, shortness of breath. Patient is denying chest pain on exertion, orthopnea, PND, he considers himself fairly active for his age he enjoys fishing, he is able to manage his finances but in last few days he has been having confusion spells, recently he experienced an episode when he started driving on the wrong side of the road. Patient is stating that he has chronic cough, uses 1 L of oxygen only at night, has not noticed any change in sputum production or cough frequency but whenever he coughs he experiences pain below left nipple. He is denying weight loss, hemoptysis, hematemesis, nausea, vomiting, he is endorsing alternating diarrhea and constipation, recently he used Megace and Pepto-Bismol for constipation. He is denying nocturia, obstructive symptoms. He was evaluated in the ER yesterday but he left AGAINST MEDICAL ADVICE, apparently he reported chest pain yesterday as well, diagnostics in the ER revealed troponin 25 same as yesterday, nonspecific T wave changes, sinus bradycardia without QTC prolongation,, high D-dimer, CTA chest was done yesterday which ruled out PE, however today's chest x-ray shows mild increase in interstitial infiltrates, he has mild leukocytosis, does not meet sepsis criteria in the ER, I have requested Covid antigen test, procalcitonin level, TSH and started him on community-acquired pneumonia regimen for my suspicion of pneumonia, at the time my evaluation he is awake alert oriented x3 no confusion noticed at all, no strokelike symptoms. Granddaughter at the bedside. Patient is a good historian, granddaughter did not feel that he missed anything in providing HPI. Patient is able to tell me the name of the doctor who did abdominal aortic aneurysm stent placement 10 years ago at [facility]. He was evaluated at [place] 2 to 3 weeks ago for similar complaints as well. Review of Systems Const: Reports: body aches, fatigue and malaise; Denies: fever(s) or chills Eyes: Denies: change in vision ENMT: Denies: throat pain Card: Reports: chest pain and pre-syncope; Denies: swelling of feet/ankles, syncope, dyspnea on exertion or orthopnea Resp: Reports: pain on inspiration; Denies: dyspnea GI: Reports: constipation; Denies: abdominal pain : Denies: flank pain or oliguria Musc: Reports: muscle cramps; Denies: joint pain Skin/Breast: Denies: rash Neuro: Reports: frequent falls and confusion; Denies: headache(s) Psych: Denies: anxiety Endo: Denies: polyuria Christian/Lymph: Denies: easy bruising All/Imm: Denies: urticaria Medications/Allergies Home Medications Medication Instructions Recorded Confirmed Last Taken Type aspirin [Aspir-81] 81 mg PO DAILY@0900 06/08/20 06/09/20 06/09/20 History atorvastatin 40 mg PO DAILY@1900 06/08/20 06/09/20 06/08/20 History clopidogrel 75 mg PO DAILY@0900 06/08/20 06/09/20 06/09/20 History glipizide 5 mg PO DAILY@0900 06/08/20 06/09/20 06/09/20 History levalbuterol HCl See Rx Instructions .ROUTE .COMPLEX 06/08/20 06/09/20 Unknown History lisinopril 20 mg PO DAILY@0900 06/08/20 06/09/20 06/09/20 History metoprolol tartrate 25 mg PO Q12H 06/08/20 06/09/20 06/09/20 History acetaminophen [Tylenol Extra 500 - 1,000 mg PO PRN 06/09/20 06/09/20 06/07/20 History Strength] Allergies Allergy/AdvReac Type Severity Reaction Status Date / Time Penicillins Allergy Unknown Verified 06/08/20 14:09 PFSH Acute PFSH: Medical History COPD (chronic obstructive pulmonary disease) History of prediabetes Hypertension Surgical History H/O abdominal aortic aneurysm repair Family History Other Family history non-contributory Social History Smoking and tobacco status: former smoker Alcohol intake: never Substance/Drug Use: never Household members: family Housing: House Vitals/I&O/Wt Last Vital Signs Temp 97.5 F L 06/09/20 13:36 Pulse 56 L 06/09/20 13:36 Resp 16 06/09/20 13:36 BP 105/55 06/09/20 13:36 Pulse Ox 96 06/09/20 13:36 Weight last 48 hrs Weight 115.666 kg Physical Exam Narrative: EXAM NARRATIVE: This is a very pleasant elderly male who was sitting comfortably in semi-Vides position, saturating well on room air, looks well-hydrated, appears stated age Patient was awake alert oriented x3 GCS 15 EOMI, PERRLA No strokelike symptoms no focal signs S1, S2 sinus bradycardia no aortic stenosis murmur appreciated, Abdomen soft nontender bowel sound present Lower extremity no edema gangrene ulcer Appropriate mood and affect Skin does not show any sign of dehydration ischemia gangrene or ulcer No muscle fasciculation noticed No joint pain or swelling Bilateral breath sounds without adventitious rhonchi or crackles No acute respiratory distress No use of respiratory accessory muscles Data : 06/09/20 17:19 06/09/20 17:19 A&P Assessment and plan (1) Fall: Status: Acute (2) Confusion: Status: Acute (3) Bradycardia: Status: Acute (4) KARY (acute kidney injury): Status: Acute (5) Thoracic aortic aneurysm: Status: Acute Additional A&P Information Confusion with recurrent falls Sinus bradycardia noted Hemodynamically stable High D-dimer (malignancy versus infectious), CTA chest done yesterday ruled out PE CT head did not show dilated ventricles No strokelike symptoms Currently patient is awake alert oriented x3 I would obtain B12 level, start him on ceftriaxone and azithromycin for community-acquired pneumonia regimen, chest x-ray comparison revealed increase in interstitial markings on right lower lobe as compared to yesterday, does not meet sepsis criteria in the ER, would obtain urine antigen Rule out COVID-19 and procalcitonin level Obtain TSH Hold beta-esperanza Acute kidney injury Hold lisinopril No recent diarrhea or vomiting however patient has been using Megace and Pepto-Bismol Lactic acid normal, no flank pain, low suspicion for hydronephrosis, Sinus bradycardia Hold beta-esperanza, he seems to have symptomatic bradycardia, would obtain echo in the morning to rule out valvular abnormality however no murmur appreciated on clinical exam No active chest pain, troponin level same as yesterday Serial troponins and EKG Thoracic aortic aneurysm Patient has history of abdominal aortic aneurysm stent placement, thoracic aneurysm 4.1 cm Patient would like to follow-up with his director educational radio at [place] Dr. Blank Currently I am holding beta-esperanza, continue atorvastatin and aspirin Prediabetic: Hold glipizide, start insulin sliding scale Full code Cardiac consistent carb diet DVT prophylaxis Heparin Attestations Medical Necessity Statement*: Anticipating discharge in less than 48 hours overnight monitoring needed for symptomatic bradycardia Time Spent in Patient Care: (>than 50% of time spent in counselling and/or direct pt care on unit). 50mins Coding Level of Care Code Acute Vegetable Handler for Chg Fwd Diagnoses Fall W19.XXXA Confusion R41.0 Bradycardia R00.1 KARY (acute kidney injury) N17.9 Thoracic aortic aneurysm I71.2
[2020-06-09 20:20] LABS: Troponin 5 2HR 22.14 ng/L (0-15)
[2020-06-09 20:42] LABS: Troponin 5 2HR Delta -2.86 ABS# (0-10)
[2020-06-09 21:32] VITALS: BP 108/61; PULSE 61; RESP 14; O2SAT 95
[2020-06-09 22:00] VITALS: BP 112/70; PULSE 58; RESP 18; O2SAT 96
[2020-06-09 22:04] LABS: SARS Covid-2 Antigen Negative (Negative)
[2020-06-09 23:00] VITALS: BP 140/76; PULSE 58; RESP 12; O2SAT 97
[2020-06-10] VITALS (32 sets, daily range): BP systolic 82–172; BP diastolic 44–119; PULSE 54–84; RESP 13–24; TEMP 36.7–36.8; O2SAT 74–100
[2020-06-10 01:17] LABS: Procalcitonin 0.06 ng/mL (0-0.5)
--- NOTE | 2020-06-10 02:20 | USCV_ITS ---
Randy Renteria Age: 80 Gender: M : 1940 Exam Date: 06/10/2020 06:22 Ordering Phys: Essence Burgess MD Technologist: Nabil Pacheco [place] [facility] [place] CHEST PAIN BP: 154 / 72 HR: 61 Rhythm: Sinus Technical Quality: Fair MEASUREMENTS (Male / Female) Normal Values 2D ECHO LV Diastolic Diameter PLAX 3.9 cm 4.2 - 5.9 / 3.9 - 5.3 cm LV Systolic Diameter PLAX 2.2 cm IVS Diastolic Thickness 2.1 cm 0.6 - 1.0 / 0.6 - 0.9 cm IVS Systolic Thickness 2.7 cm LVPW Diastolic Thickness 2.0 cm 0.6 - 1.0 / 0.6 - 0.9 cm LVPW Systolic Thickness 2.3 cm LVOT Diameter 2.0 cm LV Ejection Fraction 2D Teich 78.9 % LV Ejection Fraction MOD 2C 63.9 % LV Ejection Fraction 2C AL 64.0 % LA Diameter 3.8 cm LA Width 3.5 cm LA Height 5.1 cm Aorta at Sinotubular Diameter 2.8 cm M-MODE LV Diastolic Diameter MM 6.9 cm 4.2 - 5.9 / 3.9 - 5.3 cm LV Systolic Diameter MM 4.2 cm LV Ejection Fraction MM Teich 68.1 % IVS Diastolic Thickness MM 2.2 cm 0.6 - 1.0 / 0.6 - 0.9 cm IVS Systolic Thickness MM 3.4 cm LVPW Diastolic Thickness MM 1.2 cm 0.6 - 1.0 / 0.6 - 0.9 cm LVPW Systolic Thickness MM 1.8 cm Aortic Annulus Diameter 3.7 cm LA Ao Ratio MM 1.1 MV E Point Septal Separation 1.0 cm DOPPLER AV Peak Velocity 145.0 cm/s LVOT Peak Velocity 91.0 cm/s AV Area Cont Eq vti 2.9 cm squared AV Area Cont Eq pk 1.9 cm squared MV Area PHT 2.7 cm squared Mitral E to A Ratio 0.5 MV E' Velocity 26.5 cm/s Mitral E to MV E' Ratio 6.7 Mitral E to LV E' Lateral Ratio 4.8 Mitral E to LV E' Septal Ratio 11.4 TR Peak Velocity 249.0 cm/s TR Peak Gradient 24.8 mmHg TV Peak E Velocity 78.0 cm/s Right Atrial Pressure 3.0 mmHg Pulmonary Artery Systolic Pressu 27.8 mmHg PV Peak Velocity 83.0 cm/s RV Acceleration Time 0.1 s RV Ejection Time 0.3 s RV AcT/ET 0.5 FINDINGS Left Ventricle Normal left ventricular size and systolic function with no regional wall motion abnormalities. LVEF is 60 to 65%. Grade 1 diastolic dysfunction is seen. Right Ventricle The right ventricle is normal in size and function. Right Atrium The right atrium is normal in size. Left Atrium The left atrium is normal in size. Mitral Valve Structurally normal mitral valve without significant stenosis or prolapse. There is no mitral regurgitation. Aortic Valve Aortic valve is thickened. No significant stenosis is seen.. There is no aortic regurgitation. Tricuspid Valve Structurally normal tricuspid valve without significant stenosis or regurgitation. Insufficient TR jet to calculate RVSP. Pulmonic Valve Structurally normal pulmonic valve without significant stenosis. There is no pulmonic regurgitation. Pericardium Normal pericardium without effusion. Aorta Normal ascending aorta dimension. CONCLUSIONS LV systolic function is normal with EF of 60 to 65%. Grade 1 diastolic dysfunction is present. No significant valvular heart disease is seen. No comparison studies are available. Jurgen Mack MD (Electronically Signed) Final Date: 10 June 2020 09:44 S
[2020-06-10 05:33] LABS: Glucose Point of Care 117 mg/dL (70-110)
[2020-06-10] MEDS: heparin 5,000 unit/mL INJ 1 mL 5000 UNIT SUBCUT ×3 (05:41→18:08)
[2020-06-10 05:53] LABS: Basophils # 0.1 10^3/uL (0.0-0.1); Basophils % 0.6 %; Eosinophils # 0.2 10^3/uL (0.0-0.8); Hematocrit 39.1 % (42.0-52.0); Hemoglobin 12.5 g/dL (11.7-16.6); Lymphocytes # 2.4 10^3/uL (0.8-4.8); Lymphocytes % 26.2 %; Mean Corpuscular Hemoglobin 31.1 pg (28.0-34.0); Mean Corpuscular Volume 97.3 fL (80-94); Mean Platelet Volume 10.2 fL (7.4-10.4); Monocytes # 1.1 10^3/uL (0.2-0.9); Monocytes % 11.8 %; Neutrophils # 5.25 10^3/uL (1.8-7.7); Neutrophils % 58.3 %; Nucleated Red Blood Cells % 0 %; Platelet Count 285 10^3/cmm (130-400); Red Blood Count 4.02 10^6/uL (4.1-5.3); Red Cell Distribution Width 13.2 % (12.1-15.1)
--- NOTE | 2020-06-10 05:57 | PC.NURSE ---
pt offered inpatient hospital bed for comfort for duration of boarding in ED, pt refused. Pt also removes ECG monitoring cables even after education
[2020-06-10 06:20] LABS: Blood Urea Nitrogen 32 mg/dL (8-23); Calcium 9.3 mg/dL (8.5-10.5); Carbon Dioxide 27 mmol/L (22-29); Chloride 100 mmol/L (98-107); Glucose 118 mg/dL (65-115); Osmolality Calculated 290 mOsm/kg (285-295); Sodium 136 mmol/L (136-145)
[2020-06-10 06:36] LABS: Thyroid Stimulating Hormone 1.49 uIU/mL (0.27-4.20); Vitamin B12 703 pg/mL (232-1245)
[2020-06-10 06:51] LABS: Anion Gap 14.2 (5-19); Potassium 5.2 mmol/L (3.5-5.1)
[2020-06-10 07:54] LABS: Glucose Point of Care 106 mg/dL (70-110)
--- NOTE | 2020-06-10 08:08 | USCV_ITS ---
Randy Renteria Age: 80 Gender: M : 1940 Exam Date: 06/10/2020 08:08 Ordering Phys: Juna A Faye MD Technologist: Whitney Vann [place] [facility] [place]: PAST CVA Risk Factors: Previous Vascular Surgery: Right Brachial BP: / Left Brachial BP: / Right Left Velocity (cm/s) Spectral Plaque Velocity (cm/s) Spectral Plaque Syst/Diast Broadening Syst/Diast Broadening 81.50/ 6.00 Prox CCA 128.30/ 17.20 66.70/ 11.10 Mid CCA 98.60 / 10.80 38.10/ 10.10 Distal CCA 77.80 / 9.40 43.40/ 11.50 Prox ICA 67.60 / 14.00 58.60/ 12.50 Mid ICA 62.60 / 14.80 62.10/ 14.00 Distal ICA 65.80 / 18.70 29.50 ECA 272.20 0.76 ICA/CCA 0.53 Antegrade Vertebral Antegrade 38.10/ 9.90 cm/s 54.40/ 14.80 cm/s Tri Subclavian Tri 228.5 109.2 0 0 FINDINGS Moderate irregular plaques at the bifurcations and proximal internal carotid arteries bilaterally Elevated velocity in the right subclavian artery Antegrade flow in the vertebral arteries bilaterally CONCLUSIONS Moderate irregular plaques at the bifurcations and proximal internal carotid arteries bilaterally, with the features suggestive of less than 50% stenosis. Elevated velocity in the right subclavian artery, may suggest hemodynamically significant stenosis Dr Tiffanie Brannon MD [facility] (Electronically Signed) Final Date: 11 June 2020 08:57 S
--- NOTE | 2020-06-10 08:14 | MR_ITS ---
WS: [id number] MRI BRAIN WITHOUT CONTRAST HISTORY: falls, prior CVA on CT, assess for acute CVA COMPARISON: CT 06/09/2020. TECHNIQUE: Very limited evaluation of the brain. Patient refused to continue with the study prior to the diffusion sequences. There is mild cerebral and cerebellar atrophy. There are a few scattered T2 and FLAIR signal hyperint ensities. There are no large areas of edema or sulcal effacement. Without the diffusion-weighted imag es there is no convincing evidence for an acute infarct. No inferior displacement of the cerebellar t onsils. Ventricles are normal size. No hemorrhage. No significant sinus disease. MR/MR head wo con* [id number] IMPRESSION: 1. Limited evaluation of the brain as patient refused to continue with this ex amination. 2. Although no diffusion-weighted images are submitted there is no evidence fo r an an acute infarct appreciated. 3. Cerebral atrophy and mild chronic microvascular ischemic disease.
[2020-06-10] MEDS: azithromycin 250 mg Tablet 500 MG PO (11:16)
[2020-06-10 11:17] LABS: Glucose Point of Care 138 mg/dL (70-110)
[2020-06-10] MEDS: clopidogrel 75 mg Tablet PO (11:17)
[2020-06-10] MEDS: aspirin 81 mg EC Tablet PO (11:17)
[2020-06-10] MEDS: cefTRIAXone 1,000 MG in sodium chloride 0.9% (plus) 50 ML 100 MG IV (11:17)
[2020-06-10] MEDS: midodrine 5 mg TABLET PO ×2 (13:07→22:01)
--- NOTE | 2020-06-10 13:26 | PC.RESP ---
PULMONARY REHAB INFORMATION SENT TO PATIENT.
[2020-06-10 17:24] LABS: Glucose Point of Care 130 mg/dL (70-110)
[2020-06-10] MEDS: atorvastatin 40 mg Tablet PO (18:08)
--- NOTE | 2020-06-10 20:27 | P.PN_ITS ---
Subjective Subjective: Interval history: Today at rest he is doing well. Denies chest pain or pressure. Denies trouble breathing. Reports, with transientepisodes of falls, lightheadedness changes in mental status. Denies vertigo. Denies any focal neurologic deficits symptomatically. Vitals/I&O/Wt Last Vital Signs Temp 98.1 F 06/10/20 09:00 Pulse 74 06/10/20 19:39 Resp 17 06/10/20 19:39 BP 144/81 06/10/20 19:00 Pulse Ox 94 06/10/20 19:39 06/10/20 06/10/20 06/10/20 06:59 14:59 22:59 Intake Total 360 / 360 720 / 1080 Output Total 300 / 300 1000 / 1300 Balance 60 / 60 -280 / -220 Weight last 48 hrs Weight 115.666 kg Physical Exam Const: COMMON NORMALS: no acute distress and patient oriented x3 HENMT: COMMON NORMALS: oropharynx normal Neck/C-Spine: COMMON NORMALS: no JVD Resp: COMMON NORMALS: normal respiratory effort and clear to auscultation bilaterally AUSCULTATION: clear to auscultation bilaterally Cardio: COMMON NORMALS: no JVD, regular rhythm, S1 normal heart sound present, S2 normal heart sound present and No murmurs present (Cardio) RHYTHM: regular rhythm HEART SOUNDS: S1 normal heart sound present and S2 normal heart sound present GI: COMMON NORMALS: Normal to inspection, nondistended, normoactive bowel sounds present, Soft to palpation and non-tender PALPATION: Yes Soft to palpation Extremity: COMMON NORMALS: no joint enlargement and no pedal edema Neuro: COMMON NORMALS: patient oriented x3 and moves all extremities Skin: COMMON NORMALS: no rashes or lesions noted GENERAL SKIN EXAM: no rashes or lesions noted Data : 06/10/20 05:27 06/10/20 05:27 Micro: Microbiology 06/09/20 17:57 Legionella Urinary Antigen - Final Urine,Clean Catch 06/09/20 17:57 Bacterial Antigens - Final Urine,Voided A&P Assessment and plan (1) Fall: Multiple falls, transient episodes of confusion. Reports dizziness with episodes of denies vertigo. No focal neurologic deficits noted, however, as discussed with him, his daughter has noted small strokes on CT of the head. Additional evaluation due to this thought by MRI as he was also noted to have some propensity to falling backwards for evaluation with PT. No obvious CVA noted due to poor renal function is not performed with contrast. Additionally underwent assessment by TTE given quite significant orthostatic hypotension with decrease of over 40 points on systolic blood pressure between laying and standing. Discussed with him and his daughter. TTE shows normal ejection fraction. Grade 1 diastolic dysfunction, but otherwise no major structural abnormality. He has had some moderate troponin elevation, however, without significant delta, and has had no chest pain to suggest acute IL. This may be related to blood pressure shifts, with demand ischemia. At some point nonurgently he may benefit from additional assessment/risk stratification for coronary disease by stress testing. Additional discussion of orthostatic hypotension, due to which we are holding his lisinopril, metoprolol also held due to bradycardia noted on presentation with heart rates in the 50s. Discussed with him and his daughter, however, bradycardia does not appear to be a very significant contributor as our traits with normal ejection fraction remained in the 60s and currently in the 70s. However, would be cautious, and perhaps holding metoprolol entirely initially, with reevaluation perhaps resuming on lower dosing. We discussed strict orthostatic precautions, accident and fall prevention. He has been initiated on midodrine, and he is in agreement to titrate dosing up depending on response. Discussed follow-up blood pressure measurements. He is quite eager to return home tomorrow, although was willing to stay overnight additionally to monitor blood pressure, response to my treatment, and to allow initial titration of the medication. He understands he is at risk of injury should recurrent episodes of fall/presyncope/syncope occur. Discussed even temporary use of wheelchair in case of persistent symptoms until his blood press ure is better regulated. At the same time supine hypertension may need to be something to watch out for. Rapid COVID-19 negative. He has no other Covid 19 symptoms. Status: Acute (2) Confusion: Resolved. Transient episodes as above. Suspect these may be related to presyncopal episodes secondary to quite significant orthostatic hypotension. Otherwise TSH is normal. Vitamin B12 normal. MRI not significantly remarkable. No indication of acute infection. Currently he is at baseline mental status, doing quite well. Status: Acute (3) Bradycardia: Transient, noted on presentation, heart rates in the 50s, not significantl y low, still, with significant orthostatic hypotension, for now Toprol is discontinued. Monitor heart rates. Blood pressures. Status: Acute (4) KARY (acute kidney injury): With improvement, creatinine 1.3. Perhaps secondary to blood pressure decrease with orthostasis. Possible contribution from lisinopril. For now this is held. Hyperkalemia 5.2. Lisinopril on hold. Diet changed to low potassium. Reassess. Status: Acute (5) Thoracic aortic aneurysm: Noted. Status: Acute Additional A&P Information Elevated D-dimer: Unclear cause of this. CTA 2 days previously negative for PE. Will assess lower extremity venous duplex. 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 Blank Continue atorvastatin and aspirin. Beta-blockers for now discontinued. Prediabetic: Hold glipizide, start insulin sliding scale Attestations Medical Necessity Statement*: Continue observation for now for assessment of multiple episodes of falls, transient mental status changes, significant orthostatic hypotension, optimization of medication, monitoring of bradycardia with likely return home tomorrow. Coding Level of Care Code Acute Electric Refrigerator Servicer for Chg Fwd Diagnoses Fall W19.XXXA Confusion R41.0 Bradycardia R00.1 KARY (acute kidney injury) N17.9 Thoracic aortic aneurysm I71.2
[2020-06-10 21:36] LABS: Anion Gap 14.3 (5-19); Blood Urea Nitrogen 33 mg/dL (8-23); Calcium 9.3 mg/dL (8.5-10.5); Carbon Dioxide 24 mmol/L (22-29); Chloride 101 mmol/L (98-107); Glucose 165 mg/dL (65-115); Osmolality Calculated 291 mOsm/kg (285-295); Potassium 4.3 mmol/L (3.5-5.1); Sodium 135 mmol/L (136-145)
[2020-06-11] VITALS (26 sets, daily range): BP systolic 75–173; BP diastolic 36–104; PULSE 30–115; RESP 10–22; TEMP 36.1–36.6; O2SAT 92–98
[2020-06-11 01:09] LABS: Glucose Point of Care 159 mg/dL (70-110)
[2020-06-11] MEDS: heparin 5,000 unit/mL INJ 1 mL 5000 UNIT SUBCUT ×3 (02:28→18:18)
[2020-06-11] MEDS: azithromycin 250 mg Tablet 500 MG PO (08:48)
[2020-06-11] MEDS: aspirin 81 mg EC Tablet PO (08:48)
[2020-06-11] MEDS: cefTRIAXone 1,000 MG in sodium chloride 0.9% (plus) 50 ML 100 MG IV (08:49)
[2020-06-11] MEDS: clopidogrel 75 mg Tablet PO (08:49)
[2020-06-11] MEDS: midodrine 5 mg TABLET 10 MG PO ×3 (09:04→20:40)
--- NOTE | 2020-06-11 09:29 | PC.CHAP ---
Pastoral Care Encounter/Spiritual Assessment Type of Contact [] Declined structural worker visit [] Patient/Family/Request visit [] Outpatient visit [] Follow-up visit [] Physician referral [] Code/Alert [] Routine visit [] Staff referral [] Actively dying [] Patient sleeping [] Family support [] [] Out of room [] Palliative care [] [] Receiving care in room [] Pre-surgical visit [] Trauma [] Long length of stay [x ICU visit [] Other: Relational/Emotional Strength [] Patient feels connected with others/family/visitors/staff [] Distress [] Loneliness/isolation [] Abandonment Spirituality of Patient [] Person of Verónica [] Attends Gnosticism of their Verónica [] Believes in Prayer [] Reads Bible or Hoahaoism materials [] There are Spiritual issues to be addressed Community Development Manager Interventions [x] Prayer [] Active listening [] Non-anxious presence [] Spiritual/emotional support [] Crisis/trauma care [] Spiritual counseling [] Bereavement support [] Provided bereavement packet [] Provided Bible/devotional materials [] Provided toy/stuffed animal, coloring book to patient or family member [] Provided Communion [] Anointing/Blanco [] Salvation [x] Completed spiritual assessment [] Other: Impact on Illness or Injury [] Angry [] Fearful [] Anxious [] Often cries [] Exhaustion [] Unable to work [] Unable to attend spiritism [] Unable to walk/stand [] Unable to read [] Unable to drive [] Unable to eat/drink [] Unable to sleep [] Unable to be with family [] Patient intubated [] Other: Summary Time spent with patient
[2020-06-11 13:16] LABS: Glucose Point of Care 135 mg/dL (70-110)
[2020-06-11 13:27] LABS: Glucose Point of Care 187 mg/dL (70-110)
[2020-06-11 14:57] LABS: Cortisol Random 15.16 ug/mL (2.47-19.5)
--- NOTE | 2020-06-11 16:52 | PC.NURSE ---
Patient transferred to [facility] from icu via w/c on room air. No medications infusing at this time. Patient stable at time of transfer. CSU nurse at bedside during transfer.
[2020-06-11 17:30] LABS: Glucose Point of Care 145 mg/dL (70-110)
--- NOTE | 2020-06-11 18:12 | P.PN_ITS ---
Subjective Subjective: Interval history: Subjectively he is doing well today. He denies any complaints. Denies any chest pain or pressure. No trouble breathing. Denies any lightheadedness or dizziness. All of that at rest, as soon as we were trying to assess his orthostatics, after less than a minute standing he became significantly lightheaded and needed to lie down. Vitals/I&O/Wt Last Vital Signs Temp 97.6 F 06/11/20 09:00 Pulse 69 06/11/20 16:00 Resp 22 H 06/11/20 16:00 BP 117/59 06/11/20 16:00 Pulse Ox 94 06/11/20 09:57 Physical Exam Const: COMMON NORMALS: no acute distress and patient oriented x3 HENMT: COMMON NORMALS: oropharynx normal Neck/C-Spine: COMMON NORMALS: no JVD Resp: COMMON NORMALS: normal respiratory effort and clear to auscultation bilaterally AUSCULTATION: clear to auscultation bilaterally Cardio: COMMON NORMALS: no JVD, regular rhythm, S1 normal heart sound present, S2 normal heart sound present and No murmurs present (Cardio) RHYTHM: regular rhythm HEART SOUNDS: S1 normal heart sound present and S2 normal heart sound present GI: COMMON NORMALS: Normal to inspection, nondistended, normoactive bowel sounds present, Soft to palpation and non-tender PALPATION: Yes Soft to palpation Extremity: COMMON NORMALS: no joint enlargement and no pedal edema Neuro: COMMON NORMALS: patient oriented x3 and moves all extremities Skin: COMMON NORMALS: no rashes or lesions noted GENERAL SKIN EXAM: no rashes or lesions noted Data : 06/10/20 05:27 06/10/20 20:59 A&P Assessment and plan (1) Fall: Severe orthostatic hypotension. Did not respond significantly to initiation of midodrine. We also increase the dose to 10 mg this morning, but still quite significant orthostasis with 50 point blood pressure drop in systolic pressure with standing this afternoon. At rest and lying down he is doing well. He reluctantly agreed for additional evaluation in the hospital given severity of his orthostasis. This appears to be quite disabling to him as he can only stand a very short amount of time. He does state that tomorrow he is leaving no matter what. He agreed to additional testing here. Currently with hyponatremia, normal potassium will additionally assess ACTH stimulation test gi randy borderline morning serum cortisol. We will also assess ACTH level in the morning as well as aldosterone and renin. Continue midodrine at 10 mg 3 times daily. Monitor for supine hypertension. Continue to hold antihypertensives. Carotid Doppler with noted moderate irregular plaques at the bifurcations and proximal internal carotid arteries bilaterally. Future suggestive less than 50% stenosis. Elevated velocity in the right subclavian artery possibly suggesting hemodynamically significant stenosis. He symptoms do not appear, however, to be related to steal syndrome. We will additionally assessed by arterial duplex of bilateral subclavian arteries. As discussed with him his daughter given severity of orthostasis, consideration may need to be given to wheelchair use until control over orthostasis is optimized. Strict orthostatic and fall precautions. Rapid COVID-19 negative. He has no other Covid 19 symptoms. Status: Acute (2) Confusion: Resolved. Transient episodes as above. Suspect these may be related to presyncopal episodes secondary to quite significant orthostatic hypotension. O therwise TSH is normal. Vitamin B12 normal. MRI not significantly remarkable. No indication of acute infection. Currently he is at baseline mental status, doing quite well. Status: Acute (3) Bradycardia: Transient, noted on presentation, heart rates in the 50s, not significantly low, still, with significant orthostatic hypotension, for now Toprol is discontinued. Monitor heart rates. Blood pressures. Status: Acute (4) KARY (acute kidney injury): With improvement, creatinine 1.3. Perhaps secondary to blood pressure decrease with orthostasis. Possible contribution from lisinopril. For now this is held. Hyperkalemia 5.2. Lisinopril on hold. Diet changed to low potassium. Reassess. Status: Acute (5) Thoracic aortic aneurysm: Noted. Status: Acute Additional A&P Information Elevated D-dimer: Unclear cause of this. CTA 2 days previously negative for PE. No VTE on lower extremity venous duplex. Incidentally noted subclavian artery possible stenosis. As above. Subclavian artery duplex. Follow-up in outpatient clinic. Continue aspirin, statin. Management of diabetes. 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 Blank Continue atorvastatin and aspirin. Beta-blockers for now discontinued. Prediabetic: Hold glipizide, start insulin sliding scale Attestations Medical Necessity Statement*: Admission of over 2 midnights is necessary for assessment management of severe orthostatic hypotension, debilitating with multiple falls, alteration in mental status in addition to comorbidities as abo ve. Coding Level of Care Code Acute Grey Goods Tester for Chg Fwd Diagnoses Fall W19.XXXA Confusion R41.0 Bradycardia R00.1 KARY (acute kidney injury) N17.9 Thoracic aortic aneurysm I71.2
--- NOTE | 2020-06-11 18:31 | PC.NURSE ---
Received pt from ICU around 1630, Pts vital signs are stable and patient is alert and oriented x4. Pt was oriented to the room with call krueger in reach. Nurse will continue to monitor
[2020-06-11] MEDS: cosyntropin 0.25 mg SDV IVP (18:43)
[2020-06-11] MEDS: atorvastatin 40 mg Tablet PO (18:47)
[2020-06-11 19:39] LABS: Cosyntropin Baseline 9.35 mcg/dL
--- NOTE | 2020-06-11 20:37 | USCV_ITS ---
Myra Randy Age: 80 Gender: M : 1940 Exam Date: 06/11/2020 05:57 Ordering Phys: Juan A Faye MD Technologist: Analia Ellsworth [place] [facility] [place]: ASSESS FOR VTE HISTORY: DVT. PROCEDURES: Venous duplex imaging was performed in bilateral lower extremities. The following venous structures were evaluated: common femoral vein, profunda vein, proximal portion of the greater saphenous vein, superficial femoral vein, and the popliteal vein. In addition, the posterior tibial and peroneal trunk were evaluated. Serial compression, augmentation maneuvers, and spectral Doppler flow evaluation were performed. FINDINGS: Normal 2-D Doppler and augmentation and compressibility throughout the lower extremity venous structures. Additional imaging through the proximal calf veins also reveals no thrombus. Limited evaluation of the greater saphenous vein is patent with no thrombus. CONCLUSIONS No DVT bilateral lower extremities. Dr. Elena Delgado DO (Electronically Signed) Final Date: 11 June 2020 08:15 S
[2020-06-11] MEDS: trazodone 50 mg Tablet 25 MG PO (20:40)
[2020-06-11 20:46] LABS: Cosyntropin 30 Minute 21.33 mcg/dL
[2020-06-11 20:47] LABS: Cosyntropin 1 Hour 24.68 mcg/dL
[2020-06-11 22:30] LABS: Glucose Point of Care 158 mg/dL (70-110)
[2020-06-12] VITALS (12 sets, daily range): BP systolic 81–152; BP diastolic 43–66; PULSE 55–72; RESP 13–20; TEMP 36–36.8; O2SAT 90–95
[2020-06-12] MEDS: heparin 5,000 unit/mL INJ 1 mL 5000 UNIT SUBCUT ×2 (02:03→12:10)
[2020-06-12 04:50] LABS: Basophils % 0.2 %; Eosinophils # 0.2 10^3/uL (0.0-0.8); Eosinophils % 2.6 %; Hemoglobin 11.8 g/dL (11.7-16.6); Lymphocytes % 22.1 %; Mean Corpuscular HGB Conc 31.9 g/dL (30.0-36.0); Mean Corpuscular Hemoglobin 30.6 pg (28.0-34.0); Mean Corpuscular Volume 95.9 fL (80-94); Mean Platelet Volume 10.1 fL (7.4-10.4); Monocytes # 0.9 10^3/uL (0.2-0.9); Monocytes % 10.5 %; Neutrophils # 5.75 10^3/uL (1.8-7.7); Nucleated Red Blood Cells % 0 %; Platelet Count 240 10^3/cmm (130-400); Red Blood Count 3.86 10^6/uL (4.1-5.3); Red Cell Distribution Width 13.1 % (12.1-15.1)
[2020-06-12 05:17] LABS: Alanine Aminotransferase 26 U/L (0-41); Albumin Level 3.5 g/dL (3.5-5.2); Alkaline Phosphatase 93 IU/L (40-130); Anion Gap 12.2 (5-19); Aspartate Amino Transferase 18 U/L (0-40); Blood Urea Nitrogen 31 mg/dL (8-23); Calcium 9.1 mg/dL (8.5-10.5); Carbon Dioxide 25 mmol/L (22-29); Chloride 104 mmol/L (98-107); Globulin 2.9 g/dL (1.3-4.6); Glucose 148 mg/dL (65-115); Osmolality Calculated 293 mOsm/kg (285-295); Potassium 4.2 mmol/L (3.5-5.1); Sodium 137 mmol/L (136-145); Total Bilirubin 0.5 mg/dL (0.15-1.2); Total Protein 6.4 g/dL (6.6-8.7)
--- NOTE | 2020-06-12 05:31 | PC.NURSE ---
Patient is currently resting with eyes closed.
[2020-06-12 06:47] LABS: Glucose Point of Care 144 mg/dL (70-110)
--- NOTE | 2020-06-12 07:00 | USCV_ITS ---
Randy Renteria Age: 80 Gender: M : 1940 Exam Date: 06/12/2020 06:23 Ordering Phys: Juan A Faye MD Technologist: Nabil Pacheco Exam Location: [facility] [place] Indication: ? SUBCLAV STENOSIS Risk Factors: Unknown Previous Vascular Surgery: Right BP: / Left BP: / RIGHT LEFT PSV PSV (cm/s) (cm/s) Waveform Waveform Biphasic 69.0 Subclavian Distal 87.0 Biphasic Biphasic 80.0 Axillary 119.0 Biphasic Biphasic 127.0 Brachial Mid Biphasic Biphasic 97.0 Radial Mid 118.0 Biphasic Biphasic 97.0 Ulnar Mid 116.0 Biphasic 1.0 Radial/Brachial Index 1.0 1.0 Ulnar/Brachial Index 1.0 FINDINGS Ulnar brachial indicis and radial brachial indicis were 1 on both sides CONCLUSIONS Normal ulnar and radial indicis bilaterally. No evidence of any significant arterial obstruction, based on the above findings Dr Tiffanie Brannon MD [facility] (Electronically Signed) Final Date: 13 June 2020 16:47 S
[2020-06-12] MEDS: aspirin 81 mg EC Tablet PO (08:30)
[2020-06-12] MEDS: azithromycin 250 mg Tablet 500 MG PO (08:30)
[2020-06-12] MEDS: midodrine 5 mg TABLET 10 MG PO ×2 (08:30→15:32)
[2020-06-12] MEDS: clopidogrel 75 mg Tablet PO (08:30)
[2020-06-12] MEDS: cefTRIAXone 1,000 MG in sodium chloride 0.9% (plus) 50 ML 100 MG IV (08:33)
[2020-06-12] MEDS: ipratropium-albuterol 3 mL Neb INHALATION ×2 (09:48→15:57)
[2020-06-12] MEDS: fludrocortisone 0.1 mg Tablet PO (10:03)
--- NOTE | 2020-06-12 10:34 | PC.CHAP ---
Pastoral Care Encounter/Spiritual Assessment Type of Contact [] Declined wire mesh knitter visit [] Patient/Family/Request visit [] Outpatient visit [] Follow-up visit [] Physician referral [] Code/Alert [x] Routine visit [] Staff referral [] Actively dying [] Patient sleeping [] Family support [] [] Out of room [] Palliative care [] [x] Receiving care in room [] Pre-surgical visit [] Trauma [] Long length of stay [] ICU visit [] Other: Relational/Emotional Strength [x] Patient feels connected with others/family/visitors/staff [] Distress [] Loneliness/isolation [] Abandonment Spirituality of Patient [x] Person of Verónica [] Attends Anglican of their Verónica [x] Believes in Prayer [] Reads Bible or Mandaen materials [] There are Spiritual issues to be addressed Assistant Pressman Interventions [x] Prayer [x] Active listening [x] Non-anxious presence [x] Spiritual/emotional support [] Crisis/trauma care [x] Spiritual counseling [] Bereavement support [] Provided bereavement packet [] Provided Bible/devotional materials [] Provided toy/stuffed animal, coloring book to patient or family member [] Provided Communion [] Anointing/[place] [] Salvation [x] Completed spiritual assessment [] Other: Impact on Illness or Injury [] Angry [] Fearful [] Anxious [] Often cries [] Exhaustion [] Unable to work [] Unable to attend denominational [] Unable to walk/stand [] Unable to read [] Unable to drive [] Unable to eat/drink [] Unable to sleep [] Unable to be with family [] Patient intubated [] Other: Summary Had a prodedure feels better wants to go home soon has a good attitude Time spent with patient 10 mins
[2020-06-12 11:37] LABS: Glucose Point of Care 163 mg/dL (70-110)
[2020-06-12 17:09] LABS: Glucose Point of Care 152 mg/dL (70-110)
--- NOTE | 2020-06-12 17:56 | PC.NURSE ---
discharge instructions given and explained.pt and grandaughter verb understanding of instructions.[facility]
--- NOTE | 2020-06-12 21:01 | PM.DCS ---
Discharge Providers Date of Admission: 06/11/20 18:35 Date of Discharge: June 12, 2020 Attending Provider at Admission: Essence Burgess MD Attending Provider at Discharge: Juan A Faye Diagnoses at Discharge Discharge Diagnosis (1) Fall: Status: Acute (2) Confusion: Status: Acute (3) Bradycardia: Status: Acute (4) KARY (acute kidney injury): Status: Acute (5) Thoracic aortic aneurysm: Status: Acute Reason for Visit Reason for Visit: weakness/dizziness 23097 R41.0 Hospital Course Hospital Course Very pleasant 80-year-old gentleman was admitted for assessment management of episodes of falls, transient mental status changes. He was assessed in ER day prior to admission, but at that time left AGAINST MEDICAL ADVICE. At that time the assessment included CT angiogram of the chest, without finding of PE (D-dimer elevated 2.68-2.29), with atherosclerosis of thoracic aorta, aorta dilated measuring up to 4.1 cm in diameter, no aortic dissection. Mild subpleural fibrosis noted bilaterally, mild atelectasis at the lung bases. No consolidative pulmonary infiltrate noted. ER during current visit he was noted to again have troponin elevation, same level as the day prior, 25, and subsequent trend 22-23. No chest pain. EKG with noted sinus bradycardia in the low 50s, without QTC permeation, with nonspecific T wave changes. His rapid COVID-19 antigen was negative. TSH normal. UA without suggestion of UTI. Procalcitonin was normal at 0.06. Due to some noted right lower lobe atelectasis with concern for possible pneumonia he was empirically treated with Rocephin and azithromycin. He had not had significant symptoms, however, no cough, no shortness of breath, and oxygenation maintained on room air. Vitamin B12 was normal. Due to noted mild bradycardia his beta-esperanza was held. He was noted to have mild acute kidney injury, creatinine 1.4, previously mild hyperkalemia, potassium 5.2, lisinopril due to this was held. No hypoglycemia noted. CT of the head showed no acute intracranial hemorrhage or edema. 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 He was continued on aspirin and statin. Carotid duplex was obtained with finding of moderate irregular plaques at the bifurcation and proximal internal carotid arteries bilaterally with features suggestive of less than 50% stenosis. Elevated velocity incidentally noted in the right subclavian artery, possibly suggesting hemodynamically significant stenosis. Given prior CVA on CT of the head he was additionally assessed by MRI of the brain. The study was somewhat limited due to refusal to continue with examination, but no diffusion-weighted images which were submitted showed evidence for acute infarct. Cerebral atrophy noted and mild chronic microvascular ischemic disease. On examination of orthostatic blood pressures he was noted to have quite significant orthostasis with decrease of systolic blood pressures of over 50 points from laying to standing. Echocardiogram was obtained, showing normal ejection fraction 60-65%, grade 1 diastolic dysfunction. No significant valvular heart disease. His heart rates improved, ranging in the 60s-70s, occasionally decreasing into the 50s. Orthostasis persisted despite this, quite symptomatic and disabling, with him being able to stand only short time before becoming lightheaded, having to lie down. With noted mild hyponatremia, normal potassium to hyper kalemia morning serum cortisol was assessed which was 15.16. ACTH stimulation test was performed, however, and not suggestive of adrenal insufficiency. Morning serum aldosterone and renin were ordered, and the studies are send outs and pending. Please follow-up in clinic. He was started on midodrine due to severe orthostasis, however, with limited response, despite increasing the dose to 10 mg 3 times daily. Due to this he is instead initiated on fludrocortisone. He has declined to continue further hospitalization. We have had extensive discussion regarding risk of recurrent syncope due to persistent orthostasis. Risks of falls and injury. He verbalized understanding. This was also discussed with his daughter and granddaughter. For now due to still uncontrolled or static hypotension we have ordered him a wheelchair and he states will be using it until blood pressures are more steady. The cause of orthostasis not entirely clear. Please follow-up adrenal studies. Autonomic dysfunction due to diabetes is considered. However, as discussed with him other causes are not eliminated yet. He is requested to follow-up with his primary care provider as well as with his channeler insole in office regarding bradycardia, aortic aneurysm and orthostasis. The cause of D-dimer elevation is not entirely clear, although no PE was seen as noted, and venous duplex of lower extremities was negative for DVT. Arterial duplex of bilateral subclavian arteries was ordered to rule out bilateral stenosis possibly leading to steal syndrome, although his symptomatology and triggers are not really consistent with steal syndrome. The study still pending interpretation. Please follow-up on the final read. As he was requested not to drive due to some of the symptoms appearing while he was driving, making him homebound, we have requested for home health visitations to reassess his blood pressures and orthostatics and reassess his functional capacity and limitations. Please see full results and notes from hospitalization for details. Do not hesitate to reach out with questions. Physical Exam Const: COMMON NORMALS: no acute distress and patient oriented x3 OTHER: He is awake, alert, not in any distress, denies any pain or discomfort. In good spirits. Will no longer stay in the hospital beyond today. HENMT: COMMON NORMALS: oropharynx normal Neck/C-Spine: COMMON NORMALS: no JVD Resp: COMMON NORMALS: normal respiratory effort and clear to auscultation bilaterally AUSCULTATION: clear to auscultation bilaterally Cardio: COMMON NORMALS: no JVD, regular rhythm, S1 normal heart sound present, S2 normal heart sound present and No murmurs present (Cardio) RHYTHM: regular rhythm HEART SOUNDS: S1 normal heart sound present and S2 normal heart sound present GI: COMMON NORMALS: Normal to inspection, nondistended, normoactive bowel sounds present, Soft to palpation and non-tender PALPATION: Yes Soft to palpation Extremity: COMMON NORMALS: no joint enlargement and no pedal edema Neuro: COMMON NORMALS: patient oriented x3 and moves all extremities Skin: COMMON NORMALS: no rashes or lesions noted GENERAL SKIN EXAM: no rashes or lesions noted Discharge Data Data Completed and Pending: Completed Studies During Hospitalization Category Date Time Status CT head wo con* [id number] Urgent Cat Scan 06/09/20 13:48 Completed XR chest 1V emanuel ble [id number] Urgent Exams 06/09/20 13:48 Completed MR head wo con* 7 [id number] Routine MRI 06/10/20 08:14 Completed CV carotid duplex BI* [id number] Routine Ultrasound 06/10/20 08:08 Completed CV echo complete* [id number] Routine Ultrasound 06/10/20 02:20 [place] [id number] Routin e Ultrasound 06/11/20 20:37 Completed Pending at discharge Category Date Time Status Aldosterone Routi ne Lab 06/12/20 09:20 Received Miscellaneous Mellissa t Routine Lab 06/12/20 09:20 Received Plasma Renin Acti vity LC/MS/MS Rout ine Lab 06/12/20 09:20 [place] [id number] Rout ine Ultrasound 06/12/20 07:00 Taken Labs from last 24 hours 06/12/20 06/12/20 06/12/20 16:59 11:20 09:20 WBC RBC Hgb Hct MCV MCH MCHC RDW Plt Count MPV Neut % (Auto) Lymph % (Auto) Harris % (Auto) Eos % (Auto) Baso % (Auto) Neut # (Auto) Lymph # (Auto) Harris # (Auto) Eos # (Auto) Baso # (Auto) Nucleated RBC % (a uto) Nucleated RBCs # Sodium Potassium Chloride Carbon Dioxide Anion Gap BUN Creatinine GFR Calculation Glucose POC Glucose 152 H 163 H Calculated Osmolal ity Calcium Total Bilirubin AST ALT Alkaline Phosphata se Total Protein Albumin Globulin Renin Activity Pending Aldosterone Misc Test Referenc e 06/12/20 06/12/20 06/12/20 09:20 09:20 06:35 WBC RBC Hgb Hct MCV MCH MCHC RDW Plt Count MPV Neut % (Auto) Lymph % (Auto) Harris % (Auto) Eos % (Auto) Baso % (Auto) Neut # (Auto) Lymph # (Auto) Harris # (Auto) Eos # (Auto) Baso # (Auto) Nucleated RBC % (a uto) Nucleated RBCs # Sodium Potassium Chloride Carbon Dioxide Anion Gap BUN Creatinine GFR Calculation Glucose POC Glucose 144 H Calculated Osmolal ity Calcium Total Bilirubin AST ALT Alkaline Phosphata se Total Protein Albumin Globulin Renin Activity Aldosterone Pending Misc Test Referenc e Pending 06/12/20 06/12/20 06/11/20 04:30 04:30 20:31 WBC 9.0 RBC 3.86 L Hgb 11.8 Hct 37.0 L MCV 95.9 H MCH 30.6 MCHC 31.9 RDW 13.1 Plt Count 240 MPV 10.1 Neut % (Auto) 64.0 Lymph % (Auto) 22.1 Harris % (Auto) 10.5 Eos % (Auto) 2.6 Baso % (Auto) 0.2 Neut # (Auto) 5.75 Lymph # (Auto) 2.0 Harris # (Auto) 0.9 Eos # (Auto) 0.2 Baso # (Auto) 0.0 Nucleated RBC % (a uto) 0 Nucleated RBCs # 0.0 Sodium 137 Potassium 4.2 Chloride 104 Carbon Dioxide 25 Anion Gap 12.2 BUN 31 H Creatinine 1.2 GFR Calculation Not Reportable Glucose 148 H POC Glucose 158 H Calculated Osmolal ity 293 Calcium 9.1 Total Bilirubin 0.5 AST 18 ALT 26 Alkaline Phosphata se 93 Total Protein 6.4 L Albumin 3.5 Globulin 2.9 Renin Activity Aldosterone Misc Test Referenc e Vitals: Last Vital Signs Temp 98.3 F 06/12/20 15:58 Pulse 67 06/12/20 17:22 Resp 17 06/12/20 17:22 BP 139/66 06/12/20 15:58 Pulse Ox 95 06/12/20 17:22 Discharge Plan Discharge Patient Disposition: Home Health Service Condition: Stable Prescriptions: New fludrocortisone 0.1 mg Tablet 0.1 mg PO DAILY Qty: 30 RF: 0 azithromycin 250 mg tablet 250 mg PO DAILY 4 Days Qty: 4 RF: 0 Continued atorvastatin 40 mg tablet 40 mg PO DAILY@1900 RF: 0 levalbuterol HCl 0.63 mg/3 mL solution for nebulization See Rx Instructions .ROUTE .COMPLEX RF: 0 clopidogrel 75 mg tablet 75 mg PO DAILY@0900 RF: 0 glipizide 5 mg tablet 5 mg PO DAILY@0900 RF: 0 aspirin 81 mg Tablet,Delayed Release (Dr/Ec) 81 mg PO DAILY@0900 RF: 0 Tylenol Extra Strength 500 mg Tablet 500 - 1,000 mg PO PRN RF: 0 Discontinued lisinopril 20 mg tablet 20 mg PO DAILY@0900 RF: 0 metoprolol tartrate 25 mg tablet 25 mg PO Q12H RF: 0 Discharge Orders: Discharge Order (Routine); Ordered 06/12/20 Ordered By: Juan A Faey Other Ambulatory Orders: DME: Wheelchair (Order) Location: None Selected Ordered By: Juan A Faye Referrals: Brody Enriquez DO [Referring] - 06/18/20 11:00 am (Please keep your appointment at [facility] with Dr. Enriquez on June 18 at 11:00am ) Victor Hugo Gabriel MD [Referring] - 1 week (Dr. Gabriel's office will be calling to set up an appointment to be seen in 1 week. If you don't hear from them by Tomorrow afternoon, please give them a call. Thank you) Discharge Activity: Limit activity as instructed and Wheelchair as instructed Patient Instructions: Azithromycin (By mouth), Fludrocortisone Acetate (By mouth), Syncope (DC), Community-acquired Pneumonia (DC), Hypotension (DC), Pneumonia Stoplight Activity Restrictions/Additional Instructions: Please contain strict orthostatic precautions. Please use the wheelchair to get around until your blood pressures are more stable. You are started on a medication called fludrocortisone to assist with maintaining your blood pressures without decreasing so much. Please have your primary care doctor and channeler insole follow-up on your orthostatic hypotension. Please have your channeler insole also follow-up on the noted thoracic aortic aneurysm, 4.1 cm without dissection, as well as on noted incidental bradycardia to slow heart rate) 50s-60s while in the hospital. Due to slow heart rates for now your metoprolol is discontinued. Please discuss with your heart doctor and primary care doctor if this may be safe to resume at some point. Due to decreases in blood pressure while standing as well as kidney injury potassium level (5.2) noted on presentation also your lisinopril is for now discontinued. Similarly please discuss with your primary care doctor and heart doctor whether this may be safe to resume at some point. Please monitor your blood pressures at home, record values twice daily to bring to your appointment. You may also measure your blood pressure sitting and standing position (you may need assistance to do so) and record those values, however, at any time if you feel dizzy or lightheaded, please immediately sit down or lie down to prevent fainting and falls that may result in injury. Please discuss with your primary care doctor regarding small strokes noted in ER deeper brain tissue, although these are not likely to be contributing to your symptoms. Please continue optimization of treatment of diabetes with your primary care doctor. Please discuss with your primary care doctor incidentally seen elevation of D-dimer test, although no blood clots were seen in your chest or legs CT angiogram and ultrasound respectively. Please discuss also with your doctor incidentally seen narrowing of the subclavian artery on the right (artery under your clavicle). Additional follow-up ultrasound had been obtained during this admission to check if there is narrowing on both sides, although results of this ultrasound are not back yet. Please have your primary care doctor follow-up these results. Discharge Attestations Time Spent in Discharge Care*: greater than 30 min Quality Metrics Clinical Quality Measures During this hospital stay, did patient experience: None Coding Level of Care Code Acute Hospital Clerk for Chg Fwd Diagnoses Fall W19.XXXA Confusion R41.0 Bradycardia R00.1 KARY (acute kidney injury) N17.9 Thoracic aortic aneurysm I71.2
--- NOTE | 2020-06-13 12:14 | PC.RESP ---
Pulmonary Rehab information sent to patient.
[2020-06-15 20:33] LABS: Plasma Renin Activity LC/MS/MS 0.92 ng/mL/h (0.25-5.82)
== END 2020-06-12 17:56 | disposition home health service (06) | DRG 312 ==
LOC: ER 22:07 → ER IP 06-10 04:07 → ICU 06-10 06:26 → CSU 06-11 16:45
PROVIDERS: Admitting Provider Internal Medicine; Emergency Provider Family Medicine; Visit Provider Internal Medicine
DX: I95.1 Orthostatic hypotension (principal); J18.9 Pneumonia, unspecified organism; J44.0 Chronic obstructive pulmonary disease with (acute) lower respiratory infection; N17.9 Acute kidney failure, unspecified; Z99.81 Dependence on supplemental oxygen; R29.6 Repeated falls; K59.00 Constipation, unspecified; I10 Essential (primary) hypertension; R73.03 Prediabetes; Z87.891 Personal history of nicotine dependence; I71.6 Thoracoabdominal aortic aneurysm, without rupture; Z95.828 Presence of other vascular implants and grafts; E87.6 Hypokalemia; Z79.02 Long term (current) use of antithrombotics/antiplatelets; Z79.82 Long term (current) use of aspirin; Z86.73 Personal history of transient ischemic attack (TIA), and cerebral infarction without residual deficits; I65.23 Occlusion and stenosis of bilateral carotid arteries
CPT/HCPCS: 12345; 36415; 36416; 70450; 70551; 71045; 80048; 80053; 81001; 82024; 82088; 82533; 82550; 82607; 82962; 83605; 83880; 84145; 84244; 84443; 84484; 85025; 85378; 86403; 87426; 87449; 93005; 93306; 93880; 93930; 93970; 94640; 96372; 97161; 97530; 99283; G0378; J0696; J0834; J1644; J1815; Q0144

== ENCOUNTER 2020-07-14 11:49 | Emergency (ER) | payer MEDICARE, SELFPAY ==
[2020-07-14 11:54] VITALS: BP 163/72; PULSE 75; RESP 14; TEMP 36.4; O2SAT 95; BMI 33.6
--- NOTE | 2020-07-14 12:14 | ED_ITS ---
HPI - Abdominal Pain General: Chief Complaint: Abdominal Pain Stated Complaint: LOWER LEFT ABD PAIN Time Seen by Provider: 07/14/20 12:06 Source: patient Mode of arrival: ambulatory Limitations: no limitations History of Present Illness: HPI narrative: Patient is a very pleasant 80-year-old male who presents to ED today with a complaint of left lower abdominal pain that initially began approximately 2 days ago. He states pain began gradually and has been constant since onset. Reports pain seems to start in his left lower back and radiate around to his left lower abdomen. He feels if he gets up and walks it slightly alleviates his discomfort. He is not complaining of nausea, vomiting, diarrhea, constipation. He has no urinary complaints or difficulty starting the stream. He is not running fevers or chills. No rashes/lesions. MD elicited complaint: abdominal pain Pertinent past history: none Onset (ago): day(s) Pain Consistency: constant Location: LLQ and Other (L lower back) Severity: moderate Exacerbating factors: nothing Relieving factors: other (walking) Associated Symptoms: Reports no associated symptoms; Denies change in bowel habits, change in stool character, chills, coffee ground emesis, diarrhea, dysuria, fever(s), heartburn, hematochezia, hematemesis, melena, nausea and vomiting Review of Systems Const: Denies: fever(s), chills, body aches, change in appetite, fatigue or malaise Card: Denies: chest pain Resp: Denies: dyspnea GI: Reports: abdominal pain; Denies: nausea, vomiting, hematemesis, coffee ground emesis, heartburn, diarrhea, change in bowel habits, pain on defecation, rectal pain, rectal swelling, change in stool character, hematochezia or melena : Denies: flank pain, difficulty urinating, dysuria, urinary frequency, urinary urgency or urinary hesitancy Musc: Denies: neck pain, extremity pain, extremity swelling, joint pain or joint swelling Skin/Breast: Denies: rash Neuro: Denies: headache(s) PFSH ED PFSH: Medical History COPD (chronic obstructive pulmonary disease) History of prediabetes Hypertension Surgical History H/O abdominal aortic aneurysm repair Family History Other Family history non-contributory Social History Smoking and tobacco status: former smoker Alcohol intake: never Household members: family Housing: House Physical Exam Const: COMMON NORMALS: no acute distress, average body habitus, patient oriented x3, no limitations, healthy appearing, alert and well nourished GEN ERAL APPEARANCE: cooperative ORIENTATION/CONSCIOUSNESS: Yes awake, Yes oriented to person, Yes oriented to place and Yes oriented to time HENMT: COMMON NORMALS: normocephalic and atraumatic HEAD & SCALP: normocephalic and atraumatic Resp: COMMON NORMALS: normal respiratory effort and clear to auscultation bilaterally AUSCULTATION: clear to auscultation bilaterally Cardio: COMMON NORMALS: regular rate and regular rhythm RATE: regular rate RHYTHM: regular rhythm GI: COMMON NORMALS: Normal to inspection, nondistended, normoactive bowel so unds present, Soft to palpation, No hepatosplenomegaly present and no masses PALPATION: Yes Soft to palpation, Yes Tenderness to palpation present (GI) (LLQ) and Yes No hepatosplenomegaly present : COMMON NORMALS: Yes no CVA tenderness BLADDER/KIDNEY EXAM: Yes no CVA tenderness Back/Pelvis: COMMON NORMALS: no CVA tenderness, thoracic and lumbar spine normal to inspection, no thoracic nor lumbar tenderness and thoraco-lumbar ROM normal Extremity: COMMON NORMALS: normal to inspection GENERAL: Yes normal exam except as noted Neuro: ERIC COMA SCALE: document GCS findings Eric coma scale eye opening: Spontaneous Eric coma scale verbal response: Orientated Eric coma scale motor response: Obey commands [place] coma scale total score: 15 COMMON NORMALS: patient oriented x3, moves all extremities, no focal motor deficits, no sensory deficits noted and gait normal SENSORIUM/ORIENTATION: Yes alert, Yes oriented to person, Yes oriented to place and Yes oriented to time Skin: COMMON NORMALS: no rashes or lesions noted GENERAL SKIN EXAM: no rashes or lesions noted Course Vital Signs: Vital signs: Vital Signs Temperature 97.5 F L 07/14/20 11:54 Pulse Rate 75 07/14/20 11:54 Respiratory Rate 14 07/14/20 11:54 Blood Pressure 163/72 07/14/20 11:54 Pulse Oximetry 95 07/14/20 11:54 MDM - Abdominal Pain MDM Narrative: Medical decision making narrative: Very nice gentleman here for left lower abdominal pain that began approximately [address] imaging shows a 2 mm left UVJ stone. There is no significant hydronephrosis. Vital signs are stable. He has no white count. UA does not appear acutely infected. Patient will be placed on pain/nausea medications and Flomax. He will be given a urine strainer. Information placed with case management to get patient follow-up with Dr. Ji. Return to ED precautions given. Lab Data: Labs: Lab Results 07/14/20 07/14/20 07/14/20 Range/Units 12:40 13:30 13:30 WBC 6.4 (4.0-10.0) 10^3/ uL RBC 4.18 (4.1-5.3) 10^6/u L Hgb 12.8 (11.7-16.6) g/dL Hct 40.3 L (42.0-52.0) % MCV 96.4 H (80-94) fL MCH 30.6 (28.0-34.0) pg MCHC 31.8 (30.0-36.0) g/dL RDW 13.1 (12.1-15.1) % Plt Count 239 (130-400) 10^3/c mm MPV 9.6 (7.4-10.4) fL Neut % (Auto) 77.0 % Lymph % (Auto) 13.7 % [place] % (Auto) 7.9 % Eos % (Auto) 0.6 % Baso % (Auto) 0.5 % Neut # (Auto) 4.94 (1.8-7.7) 10^3/u L Lymph # (Auto) 0.9 (0.8-4.8) 10^3/u L [place] # (Auto) 0.5 (0.2-0.9) 10^3/u L Eos # (Auto) 0.0 (0.0-0.8) 10^3/u L Baso # (Auto) 0.0 (0.0-0.1) 10^3/u L Nucleated RBC % (a uto) 0 % Nucleated RBCs # 0.0 /100WBC Sodium 137 (136-145) mmol/L Potassium 4.3 (3.5-5.1) mmol/L Chloride 104 (98-107) mmol/L Carbon Dioxide 23 (22-29) mmol/L Anion Gap 14.3 (5-19) BUN 29 H (8-23) mg/dL Creatinine 1.6 H (0.7-1.2) mg/dL GFR Calculation Not Reportable Glucose 147 H (65-115) mg/dL Calculated Osmolal ity 293 (285-295) mOsm/k g Calcium 9.8 (8.5-10.5) mg/dL Total Bilirubin 0.5 (0.15-1.2) mg/dL AST 15 (0-40) U/L ALT 10 (0-41) U/L Alkaline Phosphata se 107 (40-130) IU/L Total Protein 7.3 (6.6-8.7) g/dL Albumin 4.2 (3.5-5.2) g/dL Globulin 3.1 (1.3-4.6) g/dL Urine Color Yellow (Yellow) Urine Appearance Cloudy (CLEAR) Urine pH 5 (5-7) Ur Specific Gravit y 1.020 (1.005-1.030) Urine Protein Neg (Negative) Urine Glucose (UA) Norm (Normal) Urine Ketones 1+ H (Negative) Urine Blood 3+ H (Negative) Urine Nitrate Negative (Negative) Urine Bilirubin 1+ H (Negative) Urine Urobilinogen Norm (Negative) mg/dL Ur Leukocyte Fidelina ase Negative (Negative) Urine RBC 5-10 H (0-2) /hpf Urine WBC 0-4 H (0-5) /hpf Ur Squamous Epith Cells None (0-5) /hpf Calcium Oxalate Cr ystal 25-40 H /hpf Amorphous Sediment Not Reportable Urine Bacteria Trace (NONE) /hpf Imaging Data ^: CT Abd/Pel: Radiologist's impression: [address] [address] [address] Scan Report Signed Patient: Randy Renteria Unit #: [id number] : 1940 Age/Sex: 80 / M ADM Date: 07/14/20 Loc: ER Room/Bed: Attending Dr: Ordering Provider/Ordering MD: Suki Knox Date of Service: 07/14/20 Procedure(s): CT kidney stone [id number] Accession Number(s): [id number] Report Number: [id number] WS: [id number] Exam: CT kidney stone [id number] Date/Time of Exam: 07/14/2020 1:38 PM Reason For Exam: L abdominal pain DLP: 1773.[address] scans at [facility] use at least one of these dose optimization techniques: automated exposure control; mA and/or kV adjustment per patient size (includes targeted exams where dose is matched to clinical indication); or iterative reconstruction. There are mild groundglass densities in both lower lung zones. Areas of mild plaque atelectasis also noted. There is a 2 mm stone at the left UVJ which may represent a recently passed stone. There are no ureteral stones identified. There are vascular calcifications in both kidneys. There are bilateral renal cysts noted. The spleen and pancreas are unremarkable. No calcified stones in the gallbladder. The stomach is unremarkable. 8 mm low-attenuation nodule in the right lobe of the liver. Similar size nodule in the left lobe also low-attenuation. These nodules are too small to characterize but could represent small cysts. Unremarkable adrenal glands. Small bowel loops are not dilated. A bifurcated graft is in place within the lower abdominal aorta without obvious complication. There is moderately extensive atherosclerotic disease of the abdominal aorta and major branches. No lymphadenopathy. No free air. Normal appendix visualized. No significant large bowel abnormality noted. Mild bladder wall thickening which may be due to underdistention. No destructive bone lesions identified. No mass or adenopathy in the pelvis. CT/CT kidney stone [id number] IMPRESSION: 1. 2 mm calcification at the left UVJ suggesting a small stone. No significant hydronephrosis. 2. Bilateral renal cysts noted. The largest cyst is at the lower pole the right kidney measures about 4 cm at greatest diameter. 3. 8 mm low-attenuation nodule in the right lobe of the liver. Similar-sized low-attenuation nodule in the left hepatic lobe. These are too small to characterize but could represent small cysts. 4. Nonspecific groundglass densities noted in both lower lung zones. Mild subsegmental lingular atelectasis. Dictated By: Clovis Jordan DO Signed By: Clovis Jordan DO Signed Date/Time: 07/14/20 1406 DD/ 1349 Discharge Plan Discharge Patient Disposition: Home Clinical Impression: Calculus of distal left ureter Condition: Stable Prescriptions: New hydrocodone-acetaminophen 5-325 mg tablet 1 tab PO Q6H PRN (Reason: pain) Qty: 14 RF: 0 Zofran 4 mg tablet 4 mg PO Q6H PRN (Reason: nausea and vomiting) Qty: 14 RF: 0 Flomax 0.4 mg capsule 0.4 mg PO DAILY Qty: 10 RF: 0 No Action atorvastatin 40 mg tablet 40 mg PO DAILY@1900 RF: 0 levalbuterol HCl 0.63 mg/3 mL solution for nebulization 0.63 mg inhalation PRN RF: 0 clopidogrel 75 mg tablet 75 mg PO DAILY@0900 RF: 0 glipizide 5 mg tablet 5 mg PO DAILY@0900 RF: 0 aspirin 81 mg Tablet,Delayed Release (Dr/Ec) 81 mg PO DAILY@0900 RF: 0 acetaminophen [Tylenol Extra Strength] 500 mg Tablet 1,000 mg PO PRN RF: 0 fludrocortisone 0.1 mg tablet 0.1 mg PO DAILY@09 RF: 0 Discharge Orders: Discharge ED (Routine); Ordered 07/14/20 Ordered By: Suki Knox Referrals: Tate Enriquez [Primary Care Provider] - Christiano Ji MD [Physician] - Patient Instructions: Opioid Safety Activity Restrictions/Additional Instructions: [facility] is committed to fighting the nationwide opiate epidemic. We are providing ALL patients with information regarding opiate safety. If you received opiate pain medication during your stay or if you received a prescription for opiate pain medication-please review this handout. If not, you may disregard. Thank you. Return to the emergency department for severe or uncontrollable pain, repetitive episodes of vomiting, fevers, inability to urinate, or any other concerns you may have. I hope you begin to feel better soon. Coding Level of Care Code ED Assistant Inventory Manager for Cheri Fwghazala Exam Comprehensive
[2020-07-14 13:28] LABS: Add Urine Microscopic? YES; Bacteria Urine TRACE /hpf; Bilirubin Urine 1+ (Negative); Blood Urine 3+ (Negative); Glucose Urine UA Norm (Normal); Ketones Urine 1+ (Negative); Leukocyte Esterase Urine Negative (Negative); Nitrate Urine Negative (Negative); Protein Urine Neg (Negative); Urine Appearance Cloudy (CLEAR); Urine Color Yellow (Yellow); Urobilinogen Urine Norm (Negative); WBC Urine 0-4 /hpf (0-5); pH Urine 5 (5-7)
[2020-07-14 13:29] LABS: Calcium Oxalate Crystals Urine 25-40 /hpf
--- NOTE | 2020-07-14 13:32 | CT_ITS ---
WS: [id number] Exam: CT kidney stone [id number] Date/Time of Exam: 07/14/2020 1:38 PM Reason For Exam: L abdominal pain DLP: 1773.[address] scans at [facility] use at least one of these dose optimization techniques: automat ed exposure control; mA and/or kV adjustment per patient size (includes targeted exams where dose is matched to clinical indication); or iterative reconstruction. There are mild groundglass densities in both lower lung zones. Areas of mild plaque atelectasis also noted. There is a 2 mm stone at the left UVJ which may represent a recently passed stone. There are n o ureteral stones identified. There are vascular calcifications in both kidneys. There are bilateral renal cysts noted. The spleen and pancreas are unremarkable. No calcified stones in the gallbladder. The stomach is unremarkable. 8 mm low-attenuation nodule in the right lobe of the liver. Similar size nodule in the left lobe also low-attenuation. These nodules are too small to characterize but could represent small cysts. Unremarkable adrenal glands. Small bowel loops are not dilated. A bifurcated g raft is in place within the lower abdominal aorta without obvious complication. There is moderately e xtensive atherosclerotic disease of the abdominal aorta and major branches. No lymphadenopathy. No fr ee air. Normal appendix visualized. No significant large bowel abnormality noted. Mild bladder wall t hickening which may be due to underdistention. No destructive bone lesions identified. No mass or silverio nopathy in the pelvis. CT/CT kidney stone [id number] IMPRESSION: 1. 2 mm calcification at the left UVJ suggesting a small stone. No significant hydronephrosis. 2. Bilateral renal cysts noted. The largest cyst is at the lower pole the right kidney measures about 4 cm at greatest diameter. 3. 8 mm low-attenuation nodule in the right lobe of the liver. Similar-sized lo w-attenuation nodule in the left hepatic lobe. These are too small to character ize but could represent small cysts. 4. Nonspecific groundglass densities noted in both lower lung zones. Mild subse gmental lingular atelectasis.
[2020-07-14 13:46] LABS: Basophils % 0.5 %; Eosinophils % 0.6 %; Hematocrit 40.3 % (42.0-52.0); Hemoglobin 12.8 g/dL (11.7-16.6); Lymphocytes # 0.9 10^3/uL (0.8-4.8); Lymphocytes % 13.7 %; Mean Corpuscular HGB Conc 31.8 g/dL (30.0-36.0); Mean Corpuscular Hemoglobin 30.6 pg (28.0-34.0); Mean Corpuscular Volume 96.4 fL (80-94); Mean Platelet Volume 9.6 fL (7.4-10.4); Monocytes # 0.5 10^3/uL (0.2-0.9); Monocytes % 7.9 %; Neutrophils # 4.94 10^3/uL (1.8-7.7); Nucleated Red Blood Cells % 0 %; Platelet Count 239 10^3/cmm (130-400); Red Blood Count 4.18 10^6/uL (4.1-5.3); Red Cell Distribution Width 13.1 % (12.1-15.1); White Blood Count 6.4 10^3/uL (4.0-10.0)
[2020-07-14 14:02] LABS: Alanine Aminotransferase 10 U/L (0-41); Albumin Level 4.2 g/dL (3.5-5.2); Alkaline Phosphatase 107 IU/L (40-130); Anion Gap 14.3 (5-19); Aspartate Amino Transferase 15 U/L (0-40); Blood Urea Nitrogen 29 mg/dL (8-23); Calcium 9.8 mg/dL (8.5-10.5); Carbon Dioxide 23 mmol/L (22-29); Chloride 104 mmol/L (98-107); Globulin 3.1 g/dL (1.3-4.6); Glucose 147 mg/dL (65-115); Osmolality Calculated 293 mOsm/kg (285-295); Potassium 4.3 mmol/L (3.5-5.1); Sodium 137 mmol/L (136-145); Total Bilirubin 0.5 mg/dL (0.15-1.2); Total Protein 7.3 g/dL (6.6-8.7)
--- NOTE | 2020-07-15 09:12 | DCPLANNER ---
technology services manager had message to schedule a follow up appointment for patient with Dr. iJ. technology services manager called the office of Dr. Ji, spoke with Violeta, gave clinic patients information. technology services manager was told that patients information would be printed and reviewed. Clinic will call patient with appointment information.
--- NOTE | 2020-07-16 07:50 | DCPLANNER ---
Patient has a follow up appointment scheduled for Tuesday, July 21, 2020 at 3:[address] Ji. Clinic will call patient with appointment information.
--- NOTE | 2020-08-07 15:06 | DCPLANNER ---
Patient had a follow up appointment scheduled for 07.21.[address] Ji - patient did attend appointment.
== END 2020-07-14 14:29 | disposition home or self-care (01) ==
PROVIDERS: Emergency Provider Physician Assistant; PCP Family Medicine
DX: N20.1 Calculus of ureter (principal); Z79.02 Long term (current) use of antithrombotics/antiplatelets; Z79.82 Long term (current) use of aspirin; Z79.84 Long term (current) use of oral hypoglycemic drugs; J44.9 Chronic obstructive pulmonary disease, unspecified; I10 Essential (primary) hypertension; Z87.891 Personal history of nicotine dependence
CPT/HCPCS: 36415; 74176; 80053; 81001; 85025; 99283

== ENCOUNTER 2020-07-21 13:44 | Outpatient (CLI) | payer MEDICARE, SELFPAY ==
--- NOTE | 2020-07-21 14:15 | XRR_ITS ---
PROCEDURE INFORMATION: Exam: XR Abdomen Exam date and time: 07/21/2020 1:54 PM Age: 80 years old Clinical indication: Condition or disease; Kidney or ureter condition; Calculus (stone) in ureter; Additional info: Ureteral stone TECHNIQUE: Imaging protocol: XR of the abdomen. Views: Frontal supine view of the abdomen. 1 View. COMPARISON: CT kidney stone [id number] 07/14/2020 1:53 PM FINDINGS: Gastrointestinal tract: Normal. No bowel dilation. Vasculature: There is a metallic vascular stent seen in the distal aorta and iliac arteries. Bones/joints: Unremarkable. XR/XR KUB [id number] IMPRESSION: 1. No acute findings. 2. Vascular stent in the distal aorta and iliac arteries
== END 2020-07-21 13:45 | disposition home or self-care (01) ==
LOC: RAD 13:47
PROVIDERS: PCP Family Medicine; Visit Provider Urology
DX: N20.1 Calculus of ureter (principal); Z95.828 Presence of other vascular implants and grafts
CPT/HCPCS: 74018; 81003

== ENCOUNTER 2020-08-29 10:22 | Emergency (ER) | payer MEDICARE, SELFPAY ==
[2020-08-29 10:23] VITALS: BP 157/82; PULSE 66; RESP 18; TEMP 36.8; O2SAT 94; BMI 32.8
--- NOTE | 2020-08-29 10:29 | CT_ITS ---
WS: [id number] CT HEAD NONCONTRAST HISTORY: TIA SYMPTOMS TECHNIQUE: Contiguous axial imaging performed through the brain in 2.5 mm imaging. Bone and soft tiss ue windows. Sagittal and coronal reformats reviewed. All CT scans at [facility] use at ast one of these dose optimization techniques: automated exposure control; mA and/or kV adjustment pe r patient size (includes targeted exams where dose is matched to clinical indication); or iterative r econstruction. DLP: 1027.15 mGy-cm. COMPARISON: 06/09/2020 No acute intracranial hemorrhage, midline shift or mass effect. Mild atrophy and mild chronic microvascular ischemic disease. Prior tiny lacunar infarcts in the LEFT basal ganglia. Ventricles: Normal size with no hydrocephalus. Paranasal sinuses: Mucoperiosteal thickening is mild in the anterior and posterior ethmoid air cells. Mastoid air cells: Well pneumatized. Calvarium and scalp: Skull is intact with no soft tissue edema or swelling. CT/CT head wo con* [id number] IMPRESSION: 1. No acute intracranial hemorrhage or edema. 2. Mild atrophy and chronic ischemic disease.
[2020-08-29 10:38] LABS: Glucose Point of Care 145 mg/dL (70-110)
[2020-08-29 10:39] VITALS: BP 157/82; PULSE 66; RESP 18; O2SAT 95
--- NOTE | 2020-08-29 10:39 | ECG_ITS ---
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1940 Requested By: Tom Brooks Order Number: [id number] Reading MD: CHARLINE BRONSON Measurements Intervals [place] Rate: 64 P: -12 NC: 200 QRS: -58 QRSD: 98 T: 49 QT: 389 QTc: 404 Interpretive Statements SINUS RHYTHM PATTERN CONSISTENT WITH PULMONARY DISEASE INFERIOR MYOCARDIAL INFARCTION , PROBABLY OLD [40+ ms Q WAVE AND/OR ST/T ABNORMALITY IN II/aVF] Compared to ECG 06/10/2020 02:49:30 Sinus bradycardia no longer present First degree AV block no longer present Myocardial infarct finding still present Electronically Signed On 08-29-2020 20:13:31 CDT by CHARLINE BRONSON [id number] f
[2020-08-29 10:40] VITALS: PULSE 64
--- NOTE | 2020-08-29 10:41 | PC.NURSE ---
POC glucose 145
[2020-08-29 10:45] LABS: Basophils % 0.8 %; Eosinophils # 0.3 10^3/uL (0.0-0.8); Eosinophils % 5.5 %; Hematocrit 41.4 % (42.0-52.0); Hemoglobin 13.6 g/dL (11.7-16.6); Lymphocytes # 1.7 10^3/uL (0.8-4.8); Mean Corpuscular HGB Conc 32.9 g/dL (30.0-36.0); Mean Corpuscular Hemoglobin 30.6 pg (28.0-34.0); Mean Platelet Volume 10.1 fL (7.4-10.4); Monocytes # 0.5 10^3/uL (0.2-0.9); Monocytes % 9.1 %; Neutrophils # 2.76 10^3/uL (1.8-7.7); Neutrophils % 52.2 %; Nucleated Red Blood Cells % 0 %; Platelet Count 241 10^3/cmm (130-400); Red Blood Count 4.45 10^6/uL (4.1-5.3); Red Cell Distribution Width 12.7 % (12.1-15.1); White Blood Count 5.3 10^3/uL (4.0-10.0)
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
[2020-08-29 11:25] VITALS: BP 121/76; PULSE 62; RESP 19; O2SAT 99
[2020-08-29 11:32] LABS: Alanine Aminotransferase 9 U/L (0-41); Albumin Level 4.1 g/dL (3.5-5.2); Alkaline Phosphatase 113 IU/L (40-130); Anion Gap 13.1 (5-19); Aspartate Amino Transferase 15 U/L (0-40); Blood Urea Nitrogen 25 mg/dL (8-23); Calcium 9.4 mg/dL (8.5-10.5); Carbon Dioxide 26 mmol/L (22-29); Chloride 103 mmol/L (98-107); Globulin 2.6 g/dL (1.3-4.6); Glucose 164 mg/dL (65-115); Osmolality Calculated 294 mOsm/kg (285-295); Potassium 4.1 mmol/L (3.5-5.1); Sodium 138 mmol/L (136-145); Total Bilirubin 0.4 mg/dL (0.15-1.2); Total Protein 6.7 g/dL (6.6-8.7)
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
--- NOTE | 2020-08-29 12:18 | CT_ITS ---
WS: [id number] CT ANGIOGRAM CEREBRAL AND CAROTID ARTERIES HISTORY: TIA TECHNIQUE: CT angiogram is performed of the carotid and cerebral arteries. During arterial injection imaging is obtained from the skull vertex to the aortic arch in 1.25 mm imaging. Coronal and sagittal reformats are submitted. Additional multi planar reformats of the carotid and cerebral arteries are submitted, MIP imaging also reviewed. NASCET criteria utilized. All CT scans at [facility] use at least one of these dose optimization techniques: automated exposure control; mA and/or kV ad justment per patient size (includes targeted exams where dose is matched to clinical indication); or iterative reconstruction. CONTRAST: Visipaque 320; 95 mL IV. DLP: 2679.73 mGy.cm COMPARISON: None available. Carotid Angiogram: Right carotid: Common carotid artery: Arises normally from the innominate. There is mild diffuse intimal thickening. Focal calcified plaque at the bifurcation. Internal carotid artery: There is a large amount of calcified plaque at the bifurcation. ICA stenosis 45%. External carotid artery: Moderate stenosis involving the origin of the external carotid artery. Left carotid: Common carotid artery: Mild intimal thickening at the origin of the common carotid artery. Internal carotid artery: Calcified plaque at the carotid bifurcation along with intimal thickening. I CA stenosis 38%. External carotid artery: Patent. Right vertebral artery: Distal RIGHT vertebral artery is not visualized and heavy calcified plaque wa s noted in the distal vertebral artery on prior CT evaluations. This may be a remote occlusion. Left vertebral artery: Unremarkable. Arises normally from the subclavian artery. Subclavian arteries: No stenosis or significant abnormality. Upper thorax: Paraseptal emphysematous changes. Soft tissue nodule in the distal trachea measures 9 m m. Thyroid gland: RIGHT thyroid nodule 1.6 cm. Osseous structures: Osteopenia. CEREBRAL ANGIOGRAM: Intracranial vertebral arteries: Occluded distal RIGHT vertebral artery is probably a chronic finding . LEFT vertebral artery is patent. Basilar artery is patent but small caliber. Basilar artery: Small caliber but patent. Intracranial Internal carotid arteries: Moderate atherosclerotic plaque and poor enhancement through the petrous and cavernous portions of the carotid arteries. There is advanced atherosclerotic disease . No occlusion. Middle cerebral arteries: Normal. Anterior cerebral arteries and ACOM: Normal. Posterior cerebral arteries and PCOM's: Normal. Dural venous sinuses are normally enhancing. Mastoid air cells: Normal. Paranasal sinuses: Mild mucoperiosteal thickening in the ethmoid air cells. Calvarium: Normal. CT/CT angio headneck* [id number] IMPRESSION: 1. Bilateral mild carotid artery stenosis, less than 50% bilaterally. 2. Extensive calcified plaque in the cavernous sinuses with stenosis probably near 50% bilaterally. 3. 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 4. Soft tissue nodule measuring 9 mm in the distal trachea. This may be mucous as it was not present on on the study of 06/08/2020. New nodule not excluded. M ay need short-term CT follow-up or bronchoscopy.
[2020-08-29] MEDS: iodixanol 320 mg/mL 100mL Btl IV (12:46)
[2020-08-29 14:22] VITALS: BP 151/94; PULSE 84; RESP 18; O2SAT 96
== END 2020-08-29 14:24 | disposition home or self-care (01) ==
PROVIDERS: Emergency Provider Family Medicine; PCP Family Medicine
DX: G45.9 Transient cerebral ischemic attack, unspecified (principal); Z79.82 Long term (current) use of aspirin; I10 Essential (primary) hypertension; J44.9 Chronic obstructive pulmonary disease, unspecified; R73.03 Prediabetes; Z79.84 Long term (current) use of oral hypoglycemic drugs; Z79.1 Long term (current) use of non-steroidal anti-inflammatories (NSAID); Z87.891 Personal history of nicotine dependence
CPT/HCPCS: 36416; 70450; 70496; 70498; 80053; 82962; 85025; 93005; 99283; Q9967

== ENCOUNTER 2020-10-09 06:30 | Emergency (ER) | payer MEDICARE, SELFPAY ==
[2020-10-09 06:35] VITALS: BP 148/65; PULSE 68; RESP 18; TEMP 36.9; O2SAT 96; BMI 33.6
--- NOTE | 2020-10-09 06:46 | CTR_ITS ---
PROCEDURE INFORMATION: Exam: CT Head Without Contrast Exam date and time: 10/09/2020 6:47 AM Age: 80 years old Clinical indication: Injury or trauma; Fall; Blunt trauma (contusions or hematomas); Consciousness not specified; Injury date: Today; Additional info: Closed head injury - PT has been having dizzy spells over the last 4 months, increasing with frequency. PT fell today and hit head. TECHNIQUE: Imaging protocol: Computed tomography of the head without contrast. Radiation optimization: All CT scans at this facility use at least one of these dose optimization techniques: automated exposure control; mA and/or kV adjustment per patient size (includes targeted exams where dose is matched to clinical indication); or iterative reconstruction. COMPARISON: CT head wo con* [id number] 08/29/2020 10:39 AM RADIATION DOSE METRICS: Total DLP (mGy-cm): 1157.09 FINDINGS: Brain: There is no acute intracranial hemorrhage or mass effect. Moderate diffuse volume loss is within the range of normal for patient age. There are small vessel ischemic changes within the periventricular and subcortical white matter, but the normal palomares-white matter delineation is maintained. Cerebral ventricles: No ventriculomegaly. Bones/joints: Unremarkable. No acute fracture. Paranasal sinuses: There is opacification of a right posterior ethmoid air cell. Mastoid air cells: Visualized mastoid air cells are well aerated. Soft tissues: Unremarkable. CT/CT head wo con* [id number] IMPRESSION: No acute hemorrhage or calvarial fracture. Radiation Dose CTDIVOL = (mGy): DLP = 1157.09 (mGy-cm)
--- NOTE | 2020-10-09 06:47 | W.ED.SYNCOPE ---
HPI - Syncope General: Chief Complaint: Syncope Stated Complaint: FALL Time Seen by Provider: 10/09/20 06:38 History of Present Illness: HPI narrative: 80-year-old male presents emergency room with 2 episodes of syncope in the last 12 hours. This been ongoing problem for many is on fludrocortisone in fact they just recently increased the dose. Last night he gone to the restroom he had a bowel movement he denies having strain significantly got up walked just a few feet and passed out. This morning he was taking a bath and fell and hit his head in the bathtub. He is awake and alert. He can answer most questions fairly well and does rely a little bit on his daughter to fill in some of the blanks and specifics. He denies any chest pain now he does have little head pain states it is head in the frontal area when he fell he has no obvious signs of trauma he denies any chest pain or shortness of breath. He states these episodes are similar to what he had in the past. He is not on any anticoagulants, but he is on dual platelet inhibitor therapy with aspirin and clopidogrel complaint: loss of consciousness Onset (ago): hour(s) -: second(s) Witnessed: Yes - by Bystander Context: standing up Injuries sustained associated with event: head Associated symptoms: Deny abdominal pain, chest pain, fever(s), headache(s), lightheadedness, nausea, short of breath, vertigo or weakness History: previous syncopal episode Treatments prior to arrival: none Review of Systems Const: Denies: fever(s) ENMT: Denies: throat pain, ear or mastoid pain, nasal discharge or nasal congestion Card: Denies: chest pain or lightheadedness Resp: Denies: dyspnea, productive cough or non-productive cough GI: Denies: abdominal pain or nausea : Denies: flank pain, dysuria, urinary frequency or urinary urgency Skin/Breast: Denies: rash or pruritus Neuro: Denies: headache(s) or vertigo [facility] ED PFSH: Medical History KARY (acute kidney injury) Bradycardia COPD (chronic obstructive pulmonary disease) Fall History of prediabetes Hypertension Thoracic aortic aneurysm Surgical History H/O abdominal aortic aneurysm repair Family History Other Family history non-contributory Social History Smoking and tobacco status: former smoker Alcohol intake: never Household members: family Housing: House Physical Exam Const: COMMON NORMALS: no acute distress GENERAL APPEARANCE: cooperative and comfortable ORIENTATION/CONSCIOUSNESS: Yes awake, Yes oriented to person, Yes oriented to place and Yes oriented to time HENMT: COMMON NORMALS: normocephalic, atraumatic and hearing grossly normal bilaterally HEAD & SCALP: normocephalic and atraumatic Eye: COMMON NORMALS: Equal, round and reactive pupils present, EOMs intact bilaterally, conjunctivae normal and no scleral icterus CONJUNCTIVA: Yes conjunctivae normal PUPIL: Yes Equal, round and reactive pupils present Neck/C-Spine: COMMON NORMALS: full ROM, no lymphadenopathy, supple and no JVD Lymph: LYMPHATIC: no lymphadenopathy noted and no lymphedema noted Resp: COMMON NORMALS: normal respiratory effort, No retractions, No use of accessory muscles and clear to auscultation bilaterally AUSCULTATION: clear to auscultation bilaterally Cardio: COMMON NORMALS: no JVD, regular rate, regular rhythm and No murmurs present (Cardio) RATE: regular rate RHYTHM: regular rhythm GI: COMMON NORMALS: Soft to palpation and No hepatosplenomegaly present AUSCULTATION: Yes normoactive bowel sounds PALPATION: Yes Soft to palpation, No Tenderness to palpation present (GI), No Guarding due to palpation present (GI) and Yes No hepatosplenomegaly present Extremity: COMMON NORMALS: normal to inspection, capillary refill normal, no clubbing, cyanosis or edema, no calf tenderness and no pedal edema Neuro: SENSORIUM/ORIENTATION: Yes oriented to person, Yes oriented to place and Yes oriented to time Skin: COMMON NORMALS: no rashes or lesions noted GENERAL SKIN EXAM: no rashes or lesions noted Course Vital Signs: Vital signs: Vital Signs Temperature 98.4 F 10/09/20 06:35 Pulse Rate 63 10/09/20 09:02 Respiratory Rate 15 10/09/20 09:02 Blood Pressure 152/83 10/09/20 09:02 Pulse Oximetry 100 10/09/20 09:02 MDM - Syncope MDM Narrative: Medical decision making narrative: Reviewed findings with patient and daughter. He is currently being treated for this problem he is on fludrocortisone was recently increased. He has an appointment with cardiology next week. Recommend he follow-up with cardiology as scheduled to complete the outpatient evaluation that has been already begun. Return if has further problems. Lab Data: Labs: Lab Results 10/09/20 10/09/20 10/09/20 Range/Units 07:11 07:11 07:11 WBC 8.7 (4.0-10.0) 10^3/ uL RBC 4.20 (4.1-5.3) 10^6/u L Hgb 12.7 (11.7-16.6) g/dL Hct 39.4 L (42.0-52.0) % MCV 93.8 (80-94) fL MCH 30.2 (28.0-34.0) pg MCHC 32.2 (30.0-36.0) g/dL RDW 13.0 (12.1-15.1) % Plt Count 260 (130-400) 10^3/c mm MPV 9.9 (7.4-10.4) fL Neut % (Auto) 75.3 % Lymph % (Auto) 11.4 % [place] % (Auto) 9.6 % Eos % (Auto) 2.5 % Baso % (Auto) 0.5 % Neut # (Auto) 6.51 (1.8-7.7) 10^3/u L Lymph # (Auto) 1.0 (0.8-4.8) 10^3/u L [place] # (Auto) 0.8 (0.2-0.9) 10^3/u L Eos # (Auto) 0.2 (0.0-0.8) 10^3/u L Baso # (Auto) 0.0 (0.0-0.1) 10^3/u L Nucleated RBC % (a uto) 0 % Nucleated RBCs # 0.0 /100WBC Sodium 141 (136-145) mmol/L Potassium 4.3 (3.5-5.1) mmol/L Chloride 106 (98-107) mmol/L Carbon Dioxide 25 (22-29) mmol/L Anion Gap 14.3 (5-19) BUN 24 H (8-23) mg/dL Creatinine 1.2 (0.7-1.2) mg/dL GFR Calculation Not Reportable Glucose 163 H (65-115) mg/dL Calculated Osmolal ity 300 H (285-295) mOsm/k g Calcium 8.8 (8.5-10.5) mg/dL Total Bilirubin 0.4 (0.15-1.2) mg/dL AST 15 (0-40) U/L ALT 11 (0-41) U/L Alkaline Phosphata se 154 H (40-130) IU/L Creatine Kinase 56 (39-308) U/L Troponin T Baselin e 35 H (0-15) ng/L Troponin T 120 Min [place] (0-15) ng/L Delta Troponin T (0-10) ABS# Total Protein 6.8 (6.6-8.7) g/dL Albumin 4.1 (3.5-5.2) g/dL Globulin 2.7 (1.3-4.6) g/dL Urine Color (Yellow) Urine Appearance (CLEAR) Urine pH (5-7) Ur Specific Gravit y (1.005-1.030) Urine Protein (Negative) Urine Glucose (UA) (Normal) Urine Ketones (Negative) Urine Blood (Negative) Urine Nitrate (Negative) Urine Bilirubin (Negative) Urine Urobilinogen (Negative) mg/dL Ur Leukocyte Fidelina ase (Negative) Urine RBC (0-2) /hpf Urine WBC (0-5) /hpf Ur Squamous Epith Cells (0-5) /hpf Calcium Oxalate Cr ystal /hpf Amorphous Sediment Urine Bacteria (NONE) /hpf Hyaline Casts /lpf Coarse Granular Ca sts /lpf Urine Mucus /hpf 10/09/20 10/09/20 Range/Units 08:25 09:22 WBC (4.0-10.0) 10^3/ uL RBC (4.1-5.3) 10^6/u L Hgb (11.7-16.6) g/dL Hct (42.0-52.0) % MCV (80-94) fL MCH (28.0-34.0) pg MCHC (30.0-36.0) g/dL RDW (12.1-15.1) % Plt Count (130-400) 10^3/c mm MPV (7.4-10.4) fL Neut % (Auto) % Lymph % (Auto) % [place] % (Auto) % Eos % (Auto) % Baso % (Auto) % Neut # (Auto) (1.8-7.7) 10^3/u L Lymph # (Auto) (0.8-4.8) 10^3/u L [place] # (Auto) (0.2-0.9) 10^3/u L Eos # (Auto) (0.0-0.8) 10^3/u L Baso # (Auto) (0.0-0.1) 10^3/u L Nucleated RBC % (a uto) % Nucleated RBCs # /100WBC Sodium (136-145) mmol/L Potassium (3.5-5.1) mmol/L Chloride (98-107) mmol/L Carbon Dioxide (22-29) mmol/L Anion Gap (5-19) BUN (8-23) mg/dL Creatinine (0.7-1.2) mg/dL GFR Calculation Glucose (65-115) mg/dL Calculated Osmolal ity (285-295) mOsm/k g Calcium (8.5-10.5) mg/dL Total Bilirubin (0.15-1.2) mg/dL AST (0-40) U/L ALT (0-41) U/L Alkaline Phosphata se (40-130) IU/L Creatine Kinase (39-308) U/L Troponin T Baselin e (0-15) ng/L Troponin T 120 Min [place] 30.03 H (0-15) ng/L Delta Troponin T -4.97 L (0-10) ABS# Total Protein (6.6-8.7) g/dL Albumin (3.5-5.2) g/dL Globulin (1.3-4.6) g/dL Urine Color Yellow (Yellow) Urine Appearance Clear (CLEAR) Urine pH 5 (5-7) Ur Specific Gravit y 1.020 (1.005-1.030) Urine Protein 1+ H (Negative) Urine Glucose (UA) 2+ (Normal) Urine Ketones Negative (Negative) Urine Blood Neg (Negative) Urine Nitrate Negative (Negative) Urine Bilirubin 1+ H (Negative) Urine Urobilinogen 4 H (Negative) mg/dL Ur Leukocyte Fidelina ase Trace H (Negative) Urine RBC 0-4 H (0-2) /hpf Urine WBC 5-10 H (0-5) /hpf Ur Squamous Epith Cells 0-4 H (0-5) /hpf Calcium Oxalate Cr ystal 55-80 H /hpf Amorphous Sediment Not Reportable Urine Bacteria Trace (NONE) /hpf Hyaline Casts 0-4 H /lpf Coarse Granular Ca sts 5-10 H /lpf Urine Mucus 2+ /hpf Discharge Plan Discharge Patient Disposition: Home Clinical Impression: Syncope due to orthostatic hypotension Condition: Stable Prescriptions: No Action atorvastatin 40 mg tablet 40 mg PO DAILY@1900 RF: 0 levalbuterol HCl 0.63 mg/3 mL solution for nebulization 0.63 mg inhalation PRN RF: 0 clopidogrel 75 mg tablet 75 mg PO DAILY@08 RF: 0 glipizide 5 mg tablet 5 mg PO DAILY@08 RF: 0 aspirin 81 mg Tablet,Delayed Release (Dr/Ec) 81 mg PO DAILY@08 RF: 0 acetaminophen [Tylenol Extra Strength] 500 mg Tablet 1,000 mg PO PRN RF: 0 fludrocortisone 0.1 mg tablet 0.1 mg PO DAILY@08 RF: 0 lisinopril 10 mg tablet 10 mg PO BID RF: 0 ibuprofen 600 mg Tablet 600 mg PO Q8H PRN (Reason: Pain) RF: 0 Discharge Orders: Discharge ED (Routine); Ordered 10/09/20 Ordered By: Tom Perez Referrals: Tate Enriquez [Primary Care Provider] - Discharge Diet: Usual diet Discharge Activity: Resume usual activity Patient Instructions: Opioid Safety Activity Restrictions/Additional Instructions: Follow-up with scheduled cardiology appointment to complete previously initiated outpatient evaluation. Coding Level of Care Code ED Leather Piece Inspector for Chg Fwd Exam Comprehensive
[2020-10-09 06:59] VITALS: BP 148/65; PULSE 63; RESP 17; O2SAT 100
[2020-10-09 07:16] LABS: Basophils % 0.5 %; Eosinophils # 0.2 10^3/uL (0.0-0.8); Eosinophils % 2.5 %; Hematocrit 39.4 % (42.0-52.0); Hemoglobin 12.7 g/dL (11.7-16.6); Lymphocytes % 11.4 %; Mean Corpuscular HGB Conc 32.2 g/dL (30.0-36.0); Mean Corpuscular Hemoglobin 30.2 pg (28.0-34.0); Mean Corpuscular Volume 93.8 fL (80-94); Mean Platelet Volume 9.9 fL (7.4-10.4); Monocytes # 0.8 10^3/uL (0.2-0.9); Monocytes % 9.6 %; Neutrophils # 6.51 10^3/uL (1.8-7.7); Neutrophils % 75.3 %; Nucleated Red Blood Cells % 0 %; Platelet Count 260 10^3/cmm (130-400); White Blood Count 8.7 10^3/uL (4.0-10.0)
[2020-10-09 07:33] LABS: Alanine Aminotransferase 11 U/L (0-41); Albumin Level 4.1 g/dL (3.5-5.2); Alkaline Phosphatase 154 IU/L (40-130); Anion Gap 14.3 (5-19); Aspartate Amino Transferase 15 U/L (0-40); Blood Urea Nitrogen 24 mg/dL (8-23); Calcium 8.8 mg/dL (8.5-10.5); Carbon Dioxide 25 mmol/L (22-29); Chloride 106 mmol/L (98-107); Creatine Phosphokinase 56 U/L (39-308); Globulin 2.7 g/dL (1.3-4.6); Glucose 163 mg/dL (65-115); Osmolality Calculated 300 mOsm/kg (285-295); Potassium 4.3 mmol/L (3.5-5.1); Sodium 141 mmol/L (136-145); Total Bilirubin 0.4 mg/dL (0.15-1.2); Total Protein 6.8 g/dL (6.6-8.7)
[2020-10-09 07:34] LABS: Troponin(5th) Baseline 35 ng/L (0-15)
[2020-10-09 08:43] LABS: Bilirubin Urine 1+ (Negative); Blood Urine Neg (Negative); Glucose Urine UA 2+ (Normal); Ketones Urine Negative (Negative); Nitrate Urine Negative (Negative); Protein Urine 1+ (Negative); Urine Appearance Clear (CLEAR); Urine Color Yellow (Yellow); pH Urine 5 (5-7)
[2020-10-09 08:44] LABS: Add Urine Microscopic? YES; Leukocyte Esterase Urine Trace (Negative); RBC Urine 0-4 /hpf (0-2); Urobilinogen Urine 4 mg/dL (Negative)
[2020-10-09 08:45] LABS: Bacteria Urine TRACE /hpf; Calcium Oxalate Crystals Urine 55-80 /hpf; Mucus Urine 2+ /hpf; Squamous Epithelial Cell Urine 0-4 /hpf (0-5)
[2020-10-09 08:46] LABS: Add Urine Culture? No; Hyaline Casts Urine 0-4 /lpf
--- NOTE | 2020-10-09 08:46 | ECG_ITS ---
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 Measurements Intervals [place] Rate: 64 P: 48 [place]: 212 QRS: -26 QRSD: 98 T: 9 QT: 394 QTc: 408 Interpretive Statements SINUS RHYTHM WITH FIRST DEGREE AV BLOCK WITH OCCASIONAL SUPRAVENTRICULAR PREMATURE COMPLEXES BORDERLINE LEFT AXIS DEVIATION [QRS AXIS < -20] INCOMPLETE RIGHT BUNDLE BRANCH BLOCK [90+ ms QRS DURATION, TERMINAL R IN V1/V2, 40+ ms S IN I/aVL/V4/V5/V6] NONSPECIFIC T-WAVE ABNORMALITY Compared to ECG 08/29/2020 10:32:34 First degree AV block now present Incomplete right bundle-branch block now present T-wave abnormality now present Myocardial infarct finding no longer present Baseline artifact, need to repeat Electronically Signed On 10-10-2020 0:06:42 CDT by Tiffanie Brannon M.D. [email or web address]/[id number] joy
[2020-10-09] MEDS: cefTRIAXone 1,000 MG in sodium chloride 0.9% (plus) 50 ML 100 MG IV (09:00)
[2020-10-09 09:02] VITALS: BP 152/83; PULSE 63; RESP 15; O2SAT 100
[2020-10-09 10:15] LABS: Troponin 5 2HR 30.03 ng/L (0-15)
[2020-10-09 10:17] LABS: Troponin 5 2HR Delta -4.97 ABS# (0-10)
[2020-10-09 10:48] VITALS: BP 147/68; PULSE 71; RESP 20; O2SAT 99
== END 2020-10-09 10:50 | disposition home or self-care (01) ==
PROVIDERS: Emergency Provider Family Medicine; PCP Family Medicine
DX: I95.1 Orthostatic hypotension (principal); Z79.02 Long term (current) use of antithrombotics/antiplatelets; Z79.84 Long term (current) use of oral hypoglycemic drugs; Z79.82 Long term (current) use of aspirin; J44.9 Chronic obstructive pulmonary disease, unspecified; I10 Essential (primary) hypertension; Z87.891 Personal history of nicotine dependence
CPT/HCPCS: 36415; 70450; 80053; 81001; 82550; 84484; 85025; 93005; 96365; 99284; J0696

== ENCOUNTER 2020-11-15 14:08 | Emergency (ER) | payer MEDICARE, SELFPAY ==
[2020-11-15] VITALS (7 sets, daily range): BP systolic 73–188; BP diastolic 43–94; PULSE 64–80; RESP 16; TEMP 36.7; O2SAT 96–100; BMI 33.7
--- NOTE | 2020-11-15 15:23 | ECG_ITS ---
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 Measurements Intervals [place] Rate: 63 P: 40 [place]: 196 QRS: -36 QRSD: 105 T: 28 QT: 405 QTc: 415 Interpretive Statements SINUS RHYTHM MARKED LEFT AXIS DEVIATION [QRS AXIS < -30] PATTERN CONSISTENT WITH PULMONARY DISEASE INCOMPLETE RIGHT BUNDLE BRANCH BLOCK [90+ ms QRS DURATION, TERMINAL R IN V1/V2, 40+ ms S IN I/aVL/V4/V5/V6] Compared to ECG 10/09/2020 09:51:41 First degree AV block no longer present T-wave abnormality no longer present Electronically Signed On 11-16-2020 9:44:56 CDT by Tiffanie Brannon M.D. [id number] f
--- NOTE | 2020-11-15 15:23 | XRR_ITS ---
PROCEDURE INFORMATION: Exam: XR Chest Exam date and time: 11/15/2020 3:23 PM Age: 80 years old Clinical indication: Other: Near syncope TECHNIQUE: Imaging protocol: XR of the chest. Views: 1 view. COMPARISON: CR XR chest 1V portable [id number] 06/09/2020 1:54 PM FINDINGS: Lungs: Unremarkable. No consolidation. Pleural spaces: Unremarkable. No pleural effusion. No pneumothorax. Heart/Mediastinum: Unremarkable. No cardiomegaly. Bones/joints: Unremarkable. XR/XR chest 1V portable [id number] IMPRESSION: No acute findings.
[2020-11-15 15:36] LABS: Basophils % 0.5 %; Eosinophils # 0.3 10^3/uL (0.0-0.8); Hematocrit 39.9 % (42.0-52.0); Hemoglobin 12.7 g/dL (11.7-16.6); Lymphocytes # 1.1 10^3/uL (0.8-4.8); Lymphocytes % 16.2 %; Mean Corpuscular HGB Conc 31.8 g/dL (30.0-36.0); Mean Corpuscular Hemoglobin 30.2 pg (28.0-34.0); Mean Platelet Volume 9.7 fL (7.4-10.4); Monocytes # 0.6 10^3/uL (0.2-0.9); Monocytes % 9.3 %; Neutrophils # 4.54 10^3/uL (1.8-7.7); Neutrophils % 69.4 %; Nucleated Red Blood Cells % 0 %; Platelet Count 297 10^3/cmm (130-400); Red Cell Distribution Width 13.2 % (12.1-15.1); White Blood Count 6.5 10^3/uL (4.0-10.0)
[2020-11-15] MEDS: sodium chloride 0.9% 1,000 ML 999 ML IV ×2 (15:37→17:31)
--- NOTE | 2020-11-15 16:07 | ED_ITS ---
HPI - Syncope General: Chief Complaint: Syncope Stated Complaint: WEAKNESS Time Seen by Provider: 11/15/20 14:49 Source: patient Mode of arrival: EMS Limitations: no limitations History of Present Illness: HPI narrative: Patient is an 80-year-old male with a history of orthostatic hypotension and who is currently taking midodrine and fludrocortisone for it. He follows with cardiology. He has had multiple episodes of near syncopal episodes for some time and today has had two episodes so far. He denies any loss of consciousness. Patient states that every time he gets up he gets presyncopal and falls. He is therefore here to be seen for this. He denies chest pain, dizziness, shortness of breath. He does have some diarrhea. complaint: felt faint and almost passed out Onset (ago): hour(s) Prodromal symptoms: lightheaded Witnessed: Yes - by Bystander Context: standing up Injuries sustained associated with event: none Associated symptoms: Deny abdominal pain, chest pain, fever(s), headache(s), lightheadedness, nausea, short of breath, vertigo or weakness History: previous syncopal episode Treatments prior to arrival: none Review of Systems General: Reports: 10 or more systems reviewed and unremarkable except in HPI and below Const: Denies: fever(s) Card: Denies: chest pain or lightheadedness GI: Denies: abdominal pain or nausea Neuro: Denies: headache(s) or vertigo PFS ED PFSH: Medical History KARY (acute kidney injury) Bradycardia COPD (chronic obstructive pulmonary disease) Fall History of prediabetes Hypertension Thoracic aortic aneurysm Surgical History H/O abdominal aortic aneurysm repair Family History Other Family history non-contributory Social History Smoking and tobacco status: former smoker Alcohol intake: never Household members: family Housing: House Physical Exam Const: COMMON NORMALS: no acute distress, average body habitus, patient oriented x3, no limitations, healthy appearing, alert and well nourished HENMT: COMMON NORMALS: normocephalic, atraumatic and moist oral mucous membranes HEAD & SCALP: normocephalic and atraumatic Neck/C-Spine: COMMON NORMALS: no meningeal signs and no JVD Resp: COMMON NORMALS: normal respiratory effort, No retractions, No use of accessory muscles, clear to auscultation bilaterally and percussion normal AUSCULTATION: clear to auscultation bilaterally PERCUSSION: percussion normal Cardio: COMMON NORMALS: no JVD, regular rate, regular rhythm, S1 normal heart sound present, S2 normal heart sound present, No gallops present (Cardio), No clicks present (Cardio), No murmurs present (Cardio), No rub (Cardio) and Peripheral pulses 2+ throughout RATE: regular rate RHYTHM: regular rhythm HEART SOUNDS: S1 normal heart sound present and S2 normal heart sound present PERIPHERAL PULSES: Peripheral pulses 2+ throughout GI: COMMON NORMALS: Normal to inspection, nondistended, normoactive bowel sounds present, Soft to palpation, non-tender, No hepatosplenomegaly present, no masses and no bruits PALPATION: Yes Soft to palpation and Yes No hepatosplenomegaly present Extremity: COMMON NORMALS: normal to inspection, full ROM, capillary refill normal, no calf tenderness and no pedal edema Neuro: COMMON NORMALS: patient oriented x3 SENSORIUM/ORIENTATION: Yes alert MENINGEAL SIGNS: Yes no meningeal signs Skin: COMMON NORMALS: no rashes or lesions noted, no wounds, turgor normal, no jaundice, no petechiae and no mottling GENERAL SKIN EXAM: no rashes or lesions noted and turgor normal Course Reevaluation(s): Reevaluation #1: Patient feels much better now. He can stand up without feeling presyncopal. He has received 2 L of normal saline and his symptoms have resolved. He is ready to be discharged home. He is advised to follow-up with his rate quoting operator and primary care provider and a dose of his fludrocortisone likely needs to be increased. He voiced understanding and is in agreement with the plan Time: 20:15 Vital Signs: Vital signs: Vital Signs Temperature 98.1 F 11/15/20 21:16 Pulse Rate 80 11/15/20 21:16 Respiratory Rate 16 11/15/20 21:16 Blood Pressure 188/94 11/15/20 21:16 Pulse Oximetry 99 11/15/20 21:16 MDM - Syncope MDM Narrative: Medical decision making narrative: 80-year-old male who has a longstanding history of orthostatic syncope. He is currently on midodrine and fludrocortisone but he is still having episodes. He came to the emergency department to be evaluated for this today. Evaluation was unremarkable other than significant orthostatic vital signs. He was given 2 L of normal saline after which his symptoms resolved. He is discharged home to follow-up with his rate quoting operator and primary care provider. Medical Records: Attestation: I reviewed the patient's medical records. Lab Data: Attestation: I reviewed the patient's lab results. Labs: Lab Results 11/15/20 11/15/20 11/15/20 Range/Units 15:25 15:25 15:25 WBC 6.5 (4.0-10.0) 10^3/ uL RBC 4.20 (4.1-5.3) 10^6/u L Hgb 12.7 (11.7-16.6) g/dL Hct 39.9 L (42.0-52.0) % MCV 95.0 H (80-94) fL MCH 30.2 (28.0-34.0) pg MCHC 31.8 (30.0-36.0) g/dL RDW 13.2 (12.1-15.1) % Plt Count 297 (130-400) 10^3/c mm MPV 9.7 (7.4-10.4) fL Neut % (Auto) 69.4 % Lymph % (Auto) 16.2 % [place] % (Auto) 9.3 % Eos % (Auto) 4.0 % Baso % (Auto) 0.5 % Neut # (Auto) 4.54 (1.8-7.7) 10^3/u L Lymph # (Auto) 1.1 (0.8-4.8) 10^3/u L [place] # (Auto) 0.6 (0.2-0.9) 10^3/u L Eos # (Auto) 0.3 (0.0-0.8) 10^3/u L Baso # (Auto) 0.0 (0.0-0.1) 10^3/u L Nucleated RBC % (a uto) 0 % Nucleated RBCs # 0.0 /100WBC Sodium 145 (136-145) mmol/L Potassium 3.9 (3.5-5.1) mmol/L Chloride 104 (98-107) mmol/L Carbon Dioxide 27 (22-29) mmol/L Anion Gap 17.9 (5-19) BUN 22 (8-23) mg/dL Creatinine 1.3 H (0.7-1.2) mg/dL GFR Calculation Not Reportable Glucose 114 (65-115) mg/dL Calculated Osmolal ity 304 H (285-295) mOsm/k g Calcium 10.0 (8.5-10.5) mg/dL Total Bilirubin 0.7 (0.15-1.2) mg/dL AST 24 (0-40) U/L ALT 16 (0-41) U/L Alkaline Phosphata se 236 H (40-130) IU/L Creatine Kinase 66 (39-308) U/L Troponin T Baselin e 32 H (0-15) ng/L Troponin T 120 Min [place] (0-15) ng/L Delta Troponin T (0-10) ABS# NT-Pro-B Natriuret Pep 639 H (0-450) pg/mL Total Protein 6.7 (6.6-8.7) g/dL Albumin 4.2 (3.5-5.2) g/dL Globulin 2.5 (1.3-4.6) g/dL TSH 1.34 (0.27-4.20) uIU/ mL 11/15/20 Range/Units 17:13 WBC (4.0-10.0) 10^3/ uL RBC (4.1-5.3) 10^6/u L Hgb (11.7-16.6) g/dL Hct (42.0-52.0) % MCV (80-94) fL MCH (28.0-34.0) pg MCHC (30.0-36.0) g/dL RDW (12.1-15.1) % Plt Count (130-400) 10^3/c mm MPV (7.4-10.4) fL Neut % (Auto) % Lymph % (Auto) % [place] % (Auto) % Eos % (Auto) % Baso % (Auto) % Neut # (Auto) (1.8-7.7) 10^3/u L Lymph # (Auto) (0.8-4.8) 10^3/u L [place] # (Auto) (0.2-0.9) 10^3/u L Eos # (Auto) (0.0-0.8) 10^3/u L Baso # (Auto) (0.0-0.1) 10^3/u L Nucleated RBC % (a uto) % Nucleated RBCs # /100WBC Sodium (136-145) mmol/L Potassium (3.5-5.1) mmol/L Chloride (98-107) mmol/L Carbon Dioxide (22-29) mmol/L Anion Gap (5-19) BUN (8-23) mg/dL Creatinine (0.7-1.2) mg/dL GFR Calculation Glucose (65-115) mg/dL Calculated Osmolal ity (285-295) mOsm/k g Calcium (8.5-10.5) mg/dL Total Bilirubin (0.15-1.2) mg/dL AST (0-40) U/L ALT (0-41) U/L Alkaline Phosphata se (40-130) IU/L Creatine Kinase (39-308) U/L Troponin T Baselin e (0-15) ng/L Troponin T 120 Min [place] 24.48 H (0-15) ng/L Delta Troponin T -7.52 L (0-10) ABS# NT-Pro-B Natriuret Pep (0-450) pg/mL Total Protein (6.6-8.7) g/dL Albumin (3.5-5.2) g/dL Globulin (1.3-4.6) g/dL TSH (0.27-4.20) uIU/ mL Imaging Data^: CXR: Attestation: I personally reviewed and interpreted this imaging study as follows: Radiologist's impression: [address] [id number] ReportSigned Patient: Marina Renteria #: [id number]: 1940Acct#:[id number]/Sex: 80 / MADM Date: 11/15/20Loc: ERRoom/Bed:Attending Dr: Ordering Provider/Ordering MD: Charlotte Craft MD, [facility] [place] Date of Service: 11/15/20 Procedure(s): XR chest 1V portable [id number] Accession Number(s): [id number] Report Number: [id number] PROCEDURE INFORMATION: Exam: XR Chest Exam date and time: 11/15/2020 3:23 PM Age: 80 years old Clinical indication: Other: Near syncope TECHNIQUE: Imaging protocol: XR of the chest. Views: 1 view. COMPARISON: CR XR chest 1V portable [id number] 06/09/2020 1:54 PM FINDINGS: Lungs: Unremarkable. No consolidation. Pleural spaces: Unremarkable. No pleural effusion. No pneumothorax. Heart/Mediastinum: Unremarkable. No cardiomegaly. Bones/joints: Unremarkable. XR/XR chest 1V portable [id number] IMPRESSION: No acute findings. Dictated By:Naila Santizo By:Naila Santizo Date/Time:11/15/201DD/ 1700 EKG Data^: EKG 1: Attestation: I personally reviewed and interpreted this EKG as follows: EKG interpretation date: 11/15/20 EKG interpretation time: 15:34 Prior EKG tracings: not available for review Interpretation: Sinus rhythm. Heart rate 63 bpm. Incomplete right bundle branch block. No ST changes EKG 2: Attestation: I personally reviewed and interpreted this EKG as follows: EKG interpretation date: 11/15/20 EKG interpretation time: 16:57 Prior EKG tracings: available for review Interpretation: Sinus rhythm. Heart rate 64 bpm. Incomplete right bundle branch block No ST changes. Discharge Plan Discharge Patient Disposition: Home Clinical Impression: Orthostatic hypotension, Orthostatic lightheadedness Condition: Stable Prescriptions: Continued atorvastatin 40 mg tablet 40 mg PO DAILY@1900 RF: 0 levalbuterol HCl 0.63 mg/3 mL solution for nebulization 0.63 mg inhalation PRN RF: 0 clopidogrel 75 mg tablet 75 mg PO DAILY@08 RF: 0 glipizide 5 mg tablet 5 mg PO DAILY@08 RF: 0 aspirin 81 mg Tablet,Delayed Release (/Chandra) 81 mg PO DAILY@08 RF: 0 acetaminophen [Tylenol Extra Strength] 500 mg Tablet 1,000 mg PO PRN RF: 0 fludrocortisone 0.1 mg tablet 0.1 mg PO DAILY@08 RF: 0 lisinopril 10 mg tablet 10 mg PO BID RF: 0 ibuprofen 600 mg Tablet 600 mg PO Q8H PRN (Reason: Pain) RF: 0 Discharge Orders: Discharge ED (Routine); Ordered 11/15/20 Ordered By: Charlotte Craft Discharge Diet: Usual diet Discharge Activity: Increase activity as tolerated Patient Instructions: Hypotension (ED) Activity Restrictions/Additional Instructions: Return for any new or worsening symptoms. Follow-up with your primary care provider within 3 days and your rate quoting operator within 1 week. You may need to increase the dose of your medications for increase in your blood pressure. Get up slowly from a sitting or lying position and standing please for about 1 to 2 minutes before you start to walk. Continue home medications Coding Level of Care Code ED Clinical Auditor for Cheri Toney
[2020-11-15 16:11] LABS: Troponin(5th) Baseline 32 ng/L (0-15)
[2020-11-15 16:17] LABS: Alanine Aminotransferase 16 U/L (0-41); Albumin Level 4.2 g/dL (3.5-5.2); Alkaline Phosphatase 236 IU/L (40-130); Anion Gap 17.9 (5-19); Aspartate Amino Transferase 24 U/L (0-40); Blood Urea Nitrogen 22 mg/dL (8-23); Carbon Dioxide 27 mmol/L (22-29); Chloride 104 mmol/L (98-107); Creatine Phosphokinase 66 U/L (39-308); Globulin 2.5 g/dL (1.3-4.6); Glucose 114 mg/dL (65-115); NT Pro B Type Natriuretic Pept 639 pg/mL (0-450); Osmolality Calculated 304 mOsm/kg (285-295); Potassium 3.9 mmol/L (3.5-5.1); Sodium 145 mmol/L (136-145); Thyroid Stimulating Hormone 1.34 uIU/mL (0.27-4.20); Total Bilirubin 0.7 mg/dL (0.15-1.2); Total Protein 6.7 g/dL (6.6-8.7)
--- NOTE | 2020-11-15 17:23 | ECG_ITS ---
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 Measurements Intervals [place] Rate: 64 P: 12 [place]: 193 QRS: -35 QRSD: 93 T: 27 QT: 340 QTc: 351 Interpretive Statements SINUS RHYTHM with frequent aberrantly conducted beats INCOMPLETE RIGHT BUNDLE BRANCH BLOCK [90+ ms QRS DURATION, TERMINAL R IN V1/V2, 40+ ms S IN I/aVL/V4/V5/V6] INFERIOR MYOCARDIAL INFARCTION [40+ ms Q WAVE AND/OR ST/T ABNORMALITY IN II/aVF], PROBABLY OLD Compared to ECG 10/09/2020 09:51:41 Myocardial infarct finding now present First degree AV block no longer present T-wave abnormality no longer present Electronically Signed On 11-16-2020 9:50:08 CDT by Tiffanie Brannon M.D. [email or web address]/[id number]
--- NOTE | 2020-11-15 17:23 | PC.NURSE ---
Pt now able to tolerate standing long enough to take a blood pressure. 73/53 standing, reported to Dr. Craft, orders received. BP ok in semi-fowlers. Pt calm and in no distress, no immediate needs identified, will continue to monitor.
[2020-11-15 17:40] LABS: Troponin 5 2HR 24.48 ng/L (0-15)
[2020-11-15 17:42] LABS: Troponin 5 2HR Delta -7.52 ABS# (0-10)
== END 2020-11-15 21:18 | disposition home or self-care (01) ==
PROVIDERS: Emergency Provider Family Medicine
DX: I95.1 Orthostatic hypotension (principal); Z79.02 Long term (current) use of antithrombotics/antiplatelets; Z79.82 Long term (current) use of aspirin; Z79.84 Long term (current) use of oral hypoglycemic drugs; J44.9 Chronic obstructive pulmonary disease, unspecified; I10 Essential (primary) hypertension; Z87.891 Personal history of nicotine dependence
CPT/HCPCS: 71045; 80053; 82550; 83880; 84443; 84484; 85025; 93005; 96360; 96361; 99284; J7030